=== PATIENT | female | born 1955 | race Caucasian/White ===

== ENCOUNTER → 2016-06-18 | Outpatient (CLI) | payer BC ==
[~2016-06-18] MED LIST: ACET325T96 PO; AMIO200T4 PO; APIX1TAB3 PO; CALC500C70 PO; CLIN300C2 PO; COEN100C6 PO; FURO20TA PO; GENTAMICIN NAE; HYDR-5688 PO; IBAN150T PO; METO25TA3 PO; MULT-506 PO; NASONEX NAE; OMEG10007 PO; POTA10CA28 PO; PRAV20TA PO; SODIUM CHLORIDE NAE; quinapril PO
--- NOTE | 2016-06-18 12:38 | DIAGNOSTIC IMAGING REPORT ---
CT HEAD WITHOUT CONTRAST (CT) CLINICAL HISTORY: Severe headache COMPARISON STUDY: 03/09/2014 TECHNIQUE: Axial CT of the brain is performed from the vertex to the skull base. IV contrast was not administered for this examination. CT DOSE: 687.98 mGy.cm FINDINGS: No intra or extra-axial mass lesions are visualized. There is no CT evidence of acute cortical infarction. There is no evidence of midline shift. There is no acute hemorrhage. No calvarial fractures are visualized. There are minimal white matter hypodensities likely on a small vessel basis. There is no evidence of pathologic ventricular dilatation. There is no acute sinusitis. There are postsurgical changes present within the maxillary and ethmoid sinuses. IMPRESSION: No acute intracranial findings Electronically signed by: Stuart Garduno M.D. 06/18/2016 12:36 PM Dictated Date/Time: 06/18/2016 12:34 PM
== END | disposition home or self-care (01) ==
LOC: C.CTS 12:18
PROVIDERS: ATTEND Family Medicine
DX: R51 Headache (principal)

== ENCOUNTER → 2016-07-23 | Outpatient (CLI) | payer BC ==
[~2016-07-23] MED LIST changes: +GADAVIST IV PRN
--- NOTE | 2016-07-23 09:41 | DIAGNOSTIC IMAGING REPORT ---
MRI OF THE BRAIN WITHOUT AND WITH IV CONTRAST CLINICAL HISTORY: G44.84 Exertional [id number] New onset of headaches after age COMPARISON STUDY: No previous studies for comparison. TECHNIQUE: Utilizing a 1.5 Aiyana magnet and dedicated coil, multiplanar, multiecho imaging of the brain was performed pre and postcontrast administration. IV administration of 12.5 mL of Gadavist contrast was uneventful. FINDINGS: Diffusion-weighted images are negative for an acute ischemic focus. Several very small punctate foci of increased signal within the periventricular deep white matter regions. This is consistent with age and chronic small vessel change. No evidence for abnormal postcontrast enhancement. Ventricular system is midline. IMPRESSION: Negative study for age. Minimal chronic small vessel change. Electronically signed by: Ish David M.D. 07/23/2016 9:40 AM Dictated Date/Time: 07/23/2016 9:34 AM
--- NOTE | 2016-07-23 09:55 | DIAGNOSTIC IMAGING REPORT ---
NECK MRA HISTORY: Exertional [id number] New onset of headaches after age TECHNIQUE: [id number] and gadolinium-enhanced MRA of the neck was performed both before and after the intravenous administration of contrast. All measurements were calculated based on NASCET criteria. COMPARISON STUDY: Neck MRA 03/18/2012. FINDINGS: The aortic arch and proximal great vessels are widely patent. There is no significant stenosis, occlusion, or dissection identified within the bilateral common carotid, internal carotid, or vertebral arteries. Stable focal defect within the proximal to mid basilar artery. IMPRESSION: No significant stenosis, occlusion, or dissection identified within the carotid or vertebral arteries. Stable focal defect within the proximal to mid basilar artery which favors focal plaque. This results in moderate stenosis. Electronically signed by: Speedy Esteves M.D. 07/23/2016 9:54 AM Dictated Date/Time: 07/23/2016 9:46 AM
== END | disposition home or self-care (01) ==
LOC: C.MRIBC 08:04
PROVIDERS: ATTEND Psychiatry & Neurology Neurology
DX: G44.84 Primary exertional headache (principal); R51 Headache

== ENCOUNTER → 2016-08-17 | Outpatient (CLI) | payer BC ==
[~2016-08-17] MED LIST changes: -GADAVIST IV PRN
--- NOTE | 2016-08-17 14:29 | DIAGNOSTIC IMAGING REPORT ---
ABDOMINAL ULTRASOUND COMPLETE HISTORY: Generalized abdominal pain.. COMPARISON: None. FINDINGS: Pancreas: The visualized portions of the pancreas are unremarkable. Liver: There is a 1.4 cm cyst within the left hepatic lobe. Gallbladder: No gallbladder wall thickening. Multiple small gallstones. CBD: 9 mm. Kidneys: No hydronephrosis. Spleen: Normal in size. Aorta: Normal in caliber. IVC: Patent. IMPRESSION: 1. Multiple small gallstones. No gallbladder wall thickening. 2. The a dilated common bile duct measuring 9 mm. Electronically signed by: Speedy Esteves M.D. 08/17/2016 2:27 PM Dictated Date/Time: 08/17/2016 2:25 PM
== END | disposition home or self-care (01) ==
LOC: C.ULTRBC 13:40
PROVIDERS: ATTEND Family Medicine
DX: R10.9 Unspecified abdominal pain (principal)

== ENCOUNTER → 2016-08-18 | Outpatient (CLI) | payer BC ==
--- NOTE | 2016-08-18 09:57 | DIAGNOSTIC IMAGING REPORT ---
CHEST 2 VIEWS ROUTINE CLINICAL HISTORY: AB PAIN pain COMPARISON STUDY: 03/27/2016 FINDINGS: Chronic basilar fibrotic change. Mid and upper lungs are considered clear. Diaphragms smooth. Degenerative changes thoracic spine. IMPRESSION: Chronic change. No acute process. Electronically signed by: Ish David M.D. 08/18/2016 9:55 AM Dictated Date/Time: 08/18/2016 9:55 AM
== END | disposition home or self-care (01) ==
LOC: C.RAD1850 09:33
PROVIDERS: ATTEND Family Medicine
DX: R10.9 Unspecified abdominal pain (principal)

== ENCOUNTER 2016-09-24 10:55 | Day surgery (SDC) | payer BC ==
[2016-09-08 08:15] VITALS: BMI 31.0
--- NOTE | 2016-09-08 08:58 | PAT Medication Instructions ---
Service Date Sep 08, 2016. Current Home Medication List Acetaminophen Tab (Tylenol), 650 MG PO for Pain Apixaban (Eliquis), 5 MG PO BID Calcium/Vitamin D (Os-Demario 500 Plus D), 1 TAB PO QAM Coenzyme Q10 (Ubidecarenone) (Co-Enzyme Q10), 1 CAP PO QAM Fish Oil (Collins-3), 2 CAP PO QAM Furosemide (Lasix), 20 MG PO QAM Ibandronate Sodium (Boniva), 150 MG PO MONTHLY Metoprolol Succ (Toprol Xl) (Toprol-Xl), 25 MG PO HS Metoprolol Succinate (Toprol Xl), 12.5 MG PO QAM Multivitamin (Multivitamin), 1 TAB PO QAM Pravastatin (Pravachol ), 20 MG PO HS [Gentamicin/Nss], 1 DOSE LAURA UD PRN for PRN [Nasonex], 2 SPRAY LAURA DAILY PRN for PRN [quinapril], 5 MG PO QAM Medication Instructions For Your Scheduled Surgery Ibandronate Sodium (Boniva), 150 MG PO MONTHLY (continue as usual) Gentamicin/Nss 1 DOSE LAURA UD PRN for PRN (not taking currently) - Hold the following medications 2 weeks prior to surgery: Coenzyme Q10 (Ubidecarenone) (Co-Enzyme Q10), 1 CAP PO QAM Fish Oil (Collins-3), 2 CAP PO QAM - Hold the following medications 48 hours prior to surgery per cardio instructions: Apixaban (Eliquis), 5 MG PO BID - Hold the following medications the morning of surgery: Quinapril 5 MG PO QAM Multivitamin (Multivitamin), 1 TAB PO QAM Furosemide (Lasix), 20 MG PO QAM Calcium/Vitamin D (Os-Demario 500 Plus D), 1 TAB PO QAM - Take the following medications the morning of surgery with a sip of water: Nasonex 2 SPRAY LAURA DAILY PRN for PRN Metoprolol Succinate (Toprol Xl), 12.5 MG PO QAM Acetaminophen Tab (Tylenol), 650 MG PO for Pain (if needed) - Take the following medications as scheduled the night before surgery: Pravastatin (Pravachol ), 20 MG PO HS Metoprolol Succ (Toprol Xl) (Toprol-Xl), 25 MG PO HS Acetaminophen Tab (Tylenol), 650 MG PO for Pain : If you have any questions please call us at [phone] or [phone] ( [place]) or [phone]
[2016-09-08 09:56] LABS: PROTHROMBIN TIME (PATIENT) 10.5 SECONDS (9.0-12.0)
[2016-09-08 11:06] LABS: BUN/CREATININE RATIO 21.9 (10-20); CALCIUM 9.1 mg/dl (8.5-10.1); CREATININE 0.76 mg/dl (0.60-1.20); POTASSIUM 3.8 mmol/L (3.5-5.1)
[~2016-09-24] VITALS: Ht 160 cm; Wt 81.0 kg
[~2016-09-24 10:55] MED LIST changes: +ACETAMINOPHEN 1000 MG/100 ML IV IV ONE; -AMIO200T4 PO; +ATROPINE SULFATE 0.1 MG/ML 5ML SYR IV PRN; +CEFAZOLIN 2000 MG/60 ML D5W IV SCH; +CIPROFLOXACIN / D5W 400 MG IV SCH; -CLIN300C2 PO; +DEXAMETHASONE SOD INJ 4 MG/ML VIAL ONE; +EpHEDrine SULFATE INJ 50 MG/ML AMP IV PRN; +FENTANYL CITRATE INJ 50 MCG/1 ML 2 ML VIAL ONE; +GLYCOPYRROLATE INJ 0.2 MG/ML VIAL ONE; -HYDR-5688 PO; +HYDROmorphone INJ 1 MG/ML SYR IV PRN; +LABETALOL HCL IV 5 MG/ML 20ML IV PRN; +LACTATED RINGER'S 1000ML 1,000 ML IV SCH; +LIDOCAINE HCL 2% 2 ML VIAL (20MG/ML) ONE; +MEPERIDINE HCL 25 MG/ML CARP IV PRN; +MIDAZOLAM HCL 1 MG/ML 2ML VIAL ONE; +NEOSTIGMINE METHYLSULFATE 5 MG/5 ML SYR ONE; +ONDANSETRON INJ 2 MG/ML 2 ML VIAL IV PRN; +ONDANSETRON INJ 2 MG/ML 2 ML VIAL ONE; -POTA10CA28 PO; +PROPOFOL IV EMULSION 10 MG/ML 20 ML VIAL IV ONE; +ROCURONIUM BROMIDE 10 MG/ML 5 ML VIAL ONE; +[UNRECOGNIZED DRUG - REMARK] SCH
[2016-09-24 11:55] VITALS: BP 125/63; PULSE 70; TEMP 36.6; O2SAT 98; Ht 160 cm; Wt 81.0 kg
--- NOTE | 2016-09-24 12:29 | History & Physical Bridge Note ---
H&P Re-Evaluation Bridge Note: I have examined the patient, reviewed the History & Physical and in the interval since the performance of the History & Physical I have noted the following changes of clinical significance: No changes noted
[2016-09-24] MEDS ORDERED: BUPIVACAINE/EPINEPHRINE 0.5% MPF 1:200,000 30 ML VIAL ONE (12:34)
[2016-09-24] MEDS ORDERED: LACTATED RINGER'S 1000ML 1,000 ML IV PRN (12:57)
[2016-09-24] MEDS ORDERED: FENTANYL CITRATE INJ 50 MCG/1 ML 2 ML VIAL IV PRN (13:00)
[2016-09-24] MEDS ORDERED: ONDANSETRON INJ 2 MG/ML 2 ML VIAL IV PRN ×2 (13:00→14:15)
[2016-09-24] MEDS ORDERED: HYDR-5688 PO (13:05)
--- NOTE | 2016-09-24 13:08 | Discharge Instructions ---
Discharge Instructions Date of Service Sep 24, 2016. Visit Reason for Visit: Cholelithiasis Discharge Discharge Diagnosis / Problem: laparoscopic cholecystectomy Discharge Goals Goal(s): Decrease discomfort Activity Recommendations Activity Limitations: as noted below Lifting Limitations: no more than 10 pounds Shower/Bathe: no limitations (ok to shower) Driving or Machine Use: resume 3 days after discharge (if not taking [place]) Anesthesia . Post Anesthesia Instructions: If you have had General Anesthesia or IV Sedation: * Do not drive today. * Resume driving when surgeon permits. * Do not make important decisions or sign legal documents today. * Call surgeon for: 1. Temperature elevations greater than 101 degrees F. 2. Uncontrollable pain. 3. Excessive bleeding. 4. Persistent nausea and vomiting. 5. Medication intolerance (nausea, vomiting or rash). * For nausea and vomiting use only clear liquids such as: tea, soda, bouillon until nausea subsides, then gradually increase diet as tolerated. * If you have any concerns or questions, call your surgeon's office. If physician is unavailable and it is an emergency, call 911 or go to the nearest emergency room. . Instructions / Follow-Up Instructions / Follow-Up Dr. Storey in 2 weeks, call [phone] for any questions or if you do not already have an appt Restart Eliquis on Wednesday night Diet Recommendations Recommended Home Diet: no limitations Pending Studies Studies pending at discharge: no Medical Emergencies . Who to Call and When: Medical Emergencies: If at any time you feel your situation is an emergency, please call 911 immediately. . Non-Emergent Contact Non-Emergency issues call your: Surgeon Call Non-Emergent contact if: you have a fever, temperature is above 101.5, your pain is not controlled, wound has increased redness . . "Provider Documentation" section prepared by Altaf Serna. .
[2016-09-24] MEDS ORDERED: EpHEDrine SULFATE 50MG/5ML SYR ONE (13:22)
[2016-09-24] MEDS ORDERED: LACTATED RINGER'S 1000ML 1,000 ML IV SCH (14:02)
--- NOTE | 2016-09-24 14:06 | [facility] Operative Report ---
Operative Report Operative Date Sep 24, 2016. Pre-Operative Diagnosis Gallstones Post-Operative Diagnosis same Procedure(s) Performed lap zhao Surgeon Dr. Zachary Storey Salon Designer Surgeon(s) Jessica Griffin PA-C, Altaf Serna PA-C Estimated Blood Loss 10ML Findings non-inflammed gallbladder with stones. Specimens A: Gallbladder Anesthesia get Complication(s) None Disposition Recovery Room / PACU I attest to the content of the Intraoperative Record and any orders documented therein. Any exceptions are noted below.
[2016-09-24] MEDS: FENTANYL CITRATE INJ 50 MCG/1 ML 2 ML VIAL IV PRN ×2 (14:12→14:24)
[2016-09-24] MEDS ORDERED: HYDROCODONE/ACETAMOPHEN 5/325MG TAB PO PRN (14:15)
[2016-09-24] MEDS ORDERED: MoRPHine SULFATE 2 MG/ML CARP IV PRN (14:15)
--- NOTE | 2016-09-24 14:42 | OPERATIVE REPORT ---
DATE OF OPERATION: 09/24/2016 PREOPERATIVE DIAGNOSIS: Symptomatic cholelithiasis. POSTOPERATIVE DIAGNOSIS: Same. PROCEDURE: Laparoscopic cholecystectomy. SURGEON: Dr. Zachary Storey. SMOKE ROOM OPERATOR: Jessica Griffin PA-C and Altaf Serna PA-C ESTIMATED BLOOD LOSS: Approximately 10 mL. COMPLICATIONS: No immediate. ANESTHESIA: General. The patient tolerated the procedure well. OPERATIVE NOTE: After informed consent was obtained, the patient was taken to the operating suite and placed in the supine position. After successful intubation, the abdomen was sterilely prepped and draped in the usual fashion. A periumbilical incision made with an 11 blade scalpel and carried down through the soft tissue using electrocautery. Anterior rectus fascia was opened using electrocautery and two #0 Vicryl stay sutures were placed. Peritoneum was entered using blunt finger penetration and a finger sweep was performed to take down any underlying adhesions. A 12-mm Marilyn trocar was placed and the abdomen was insufflated to 18 mmHg. Laparoscope was inserted and the abdomen was examined at 360 degrees. A subxiphoid 5-mm port and 2 right upper quadrant 5-mm ports were placed under direct vision. The patient was placed in reverse Trendelenburg position slightly airplaned to the left. The patient had a very large floppy gallbladder and she also a very large floppy left lobe of the liver, making visualization difficult. ____ 5-mm trocar in the left upper quadrant to help elevate the left lobe of the liver, so I could visualize the cystic duct adequately. I took down adhesions around the neck of the gallbladder using a [place] dissector. Eventually, I was able to skeletonize the cystic duct, clipped it twice proximally and once distally and transected with a scissor. In similar fashion, the cystic artery was identified, skeletonized, clipped and divided. Electrocautery was used to remove the gallbladder from the gallbladder fossa. It was removed intact and placed into an EndoCatch bag and removed from the camera port site. Several small bleeding points in the gallbladder fossa were controlled using electrocautery. Thorough irrigation was performed. At the end of the procedure, there was adequate hemostasis and no evidence of a bile leak. No other gross abnormalities were identified. All the trocars were removed and the abdomen was desufflated. The fascia of the camera port was closed using 0 Vicryl in a [id number] fashion. All the wounds were irrigated and closed using 4-0 Monocryl. Marcaine was injected around them for postoperative analgesia and skin glue used as a dressing. The patient was awakened, extubated, and transferred to recovery in stable condition. I attest to the content of the Intraoperative Record and any orders documented therein. Any exceptio ns are noted below.
--- NOTE | 2016-09-24 14:42 | Anesthesiology Progress Note ---
Anesthesia Post Op Note Date & Time Sep 24, 2016 at 14:42 Vital Signs Pain Intensity: 3 Vital Signs Past 12 Hours Date Time Temp Pulse Resp B/P Pulse Ox O2 Delivery O2 Flow Rate FiO2 09/24/16 14:34 66 15 09/24/16 14:34 66 15 98 09/24/16 14:34 66 15 09/24/16 14:34 66 15 98 09/24/16 14:31 122/61 09/24/16 14:31 122/61 09/24/16 14:29 65 22 09/24/16 14:29 65 22 09/24/16 14:29 66 22 97 09/24/16 14:29 66 22 97 09/24/16 14:26 121/67 09/24/16 14:26 121/67 09/24/16 14:24 64 20 98 09/24/16 14:24 64 20 98 09/24/16 14:24 64 20 09/24/16 14:24 64 20 09/24/16 14:21 115/60 09/24/16 14:21 115/60 09/24/16 14:19 64 19 98 09/24/16 14:19 64 19 09/24/16 14:19 64 19 09/24/16 14:19 64 19 98 09/24/16 14:16 123/68 09/24/16 14:16 123/68 09/24/16 14:14 65 14 09/24/16 14:14 65 14 09/24/16 14:14 65 14 98 09/24/16 14:14 65 14 98 09/24/16 14:11 133/72 09/24/16 14:11 133/72 09/24/16 14:09 65 16 09/24/16 14:09 63 16 98 09/24/16 14:09 63 16 98 09/24/16 14:09 65 16 09/24/16 14:05 125/75 09/24/16 14:05 125/75 09/24/16 14:04 70 09/24/16 14:04 70 97 09/24/16 14:04 70 97 09/24/16 14:04 70 09/24/16 14:04 36.0 66 10 125/75 98 Mask 10 09/24/16 11:55 36.6 70 18 125/63 98 Room Air Notes Mental Status: alert / awake / arousable, participated in evaluation Pt Amnestic to Procedure: Yes Nausea / Vomiting: adequately controlled Pain: adequately controlled Airway Patency, RR, SpO2: stable & adequate BP & HR: stable & adequate Hydration State: stable & adequate Anesthetic Complications: no major complications apparent Pt doing well.
[2016-09-24 14:55] VITALS: BP 131/59; PULSE 71; TEMP 36.5; O2SAT 95
[2016-09-24 15:25] VITALS: BP 118/62; PULSE 74; TEMP 36.5; O2SAT 96
[2016-09-24 15:55] VITALS: BP 116/64; PULSE 71; TEMP 36.7; O2SAT 96
== END 2016-09-24 16:00 | disposition home or self-care (01) ==
LOC: C.ACU 10:55
PROVIDERS: ATTEND Surgery
DX: K80.10 Calculus of gallbladder with chronic cholecystitis without obstruction (principal); I10 Essential (primary) hypertension; I50.9 Heart failure, unspecified; I48.91 Unspecified atrial fibrillation; Z85.828 Personal history of other malignant neoplasm of skin; E78.00 Pure hypercholesterolemia, unspecified; Z95.2 Presence of prosthetic heart valve; Z90.89 Acquired absence of other organs; Z98.890 Other specified postprocedural states; Z88.0 Allergy status to penicillin; Z86.73 Personal history of transient ischemic attack (TIA), and cerebral infarction without residual deficits; Z79.01 Long term (current) use of anticoagulants; Z68.31 Body mass index [BMI] 31.0-31.9, adult; E66.9 Obesity, unspecified; Z83.3 Family history of diabetes mellitus; Z82.49 Family history of ischemic heart disease and other diseases of the circulatory system

== ENCOUNTER → 2016-11-02 | Outpatient (CLI) | payer BC ==
[~2016-11-02] MED LIST changes: -ACET325T96 PO; -ACETAMINOPHEN 1000 MG/100 ML IV IV ONE; -APIX1TAB3 PO; -ATROPINE SULFATE 0.1 MG/ML 5ML SYR IV PRN; -CEFAZOLIN 2000 MG/60 ML D5W IV SCH; -CIPROFLOXACIN / D5W 400 MG IV SCH; -DEXAMETHASONE SOD INJ 4 MG/ML VIAL ONE; -EpHEDrine SULFATE INJ 50 MG/ML AMP IV PRN; -FENTANYL CITRATE INJ 50 MCG/1 ML 2 ML VIAL ONE; -GLYCOPYRROLATE INJ 0.2 MG/ML VIAL ONE; +HYDR-5688 PO; -HYDROmorphone INJ 1 MG/ML SYR IV PRN; -LABETALOL HCL IV 5 MG/ML 20ML IV PRN; -LACTATED RINGER'S 1000ML 1,000 ML IV SCH; -LIDOCAINE HCL 2% 2 ML VIAL (20MG/ML) ONE; -MEPERIDINE HCL 25 MG/ML CARP IV PRN; -MIDAZOLAM HCL 1 MG/ML 2ML VIAL ONE; -NEOSTIGMINE METHYLSULFATE 5 MG/5 ML SYR ONE; -ONDANSETRON INJ 2 MG/ML 2 ML VIAL IV PRN; -ONDANSETRON INJ 2 MG/ML 2 ML VIAL ONE; -PROPOFOL IV EMULSION 10 MG/ML 20 ML VIAL IV ONE; -ROCURONIUM BROMIDE 10 MG/ML 5 ML VIAL ONE; -[UNRECOGNIZED DRUG - REMARK] SCH
--- NOTE | 2016-11-02 17:33 | DIAGNOSTIC IMAGING REPORT ---
LUMBAR SPINE 5 VIEWS HISTORY: Pain LOW BACK PAIN COMPARISON: None. FINDINGS: There is no fracture. No subluxation. Mild degenerative disc change. No evidence for subluxation. Mild scoliosis. IMPRESSION: Mild degenerative disc change. Mild scoliosis. No acute process. Electronically signed by: Ish David M.D. 11/02/2016 5:31 PM Dictated Date/Time: 11/02/2016 5:31 PM
== END | disposition home or self-care (01) ==
LOC: C.RAD 17:07
PROVIDERS: ATTEND Nurse Practitioner Family
DX: M54.5 Low back pain (principal)

== ENCOUNTER → 2017-02-11 | Outpatient (CLI) | payer BC ==
--- NOTE | 2017-02-11 16:21 | MAMMOGRAPHY REPORT ---
BILATERAL DIGITAL SCREENING MAMMOGRAM WITH CAD: 02/11/2017 CLINICAL HISTORY: Routine screening. Patient has no complaints. TECHNIQUE: Current study was also evaluated with a Computer Aided Detection (CAD) system. Bilateral CC and MLO views were obtained. COMPARISON: Comparison is made to exams dated: 02/11/2016 mammogram, 01/31/2015 mammogram, 03/30/2013 m ammogram, 09/22/2011 mammogram - [facility], 03/02/2007 mammogram, and 03/02/2007 mamm ogram. BREAST COMPOSITION: There are scattered areas of fibroglandular density in both breasts. FINDINGS: No suspicious masses, calcifications, or areas of architectural distortion are noted in ei ther breast. There has been no significant interval change compared to prior exams. IMPRESSION: ACR BI-RADS CATEGORY 1: NEGATIVE There is no mammographic evidence of malignancy. A 1 year screening mammogram is recommended. The pa tient will receive written notification of the results. Approximately 10% of breast cancers are not detected with mammography. A negative mammographic report should not delay biopsy if a clinically suggestive mass is present. Chen Crawford M.D. /:02/11/2017 14:52:21 Powerhouse Laborer: Josiane Bocanegra, [facility] letter sent: Normal 1/2 BI-RADS Code: ACR BI-RADS Category 1: Negative
== END | disposition home or self-care (01) ==
LOC: C.MAMM 14:35
PROVIDERS: ATTEND Family Medicine
DX: Z12.31 Encounter for screening mammogram for malignant neoplasm of breast (principal)

== ENCOUNTER → 2017-04-26 | Outpatient (CLI) | payer BC ==
[~2017-04-26] MED LIST changes: -HYDR-5688 PO
--- NOTE | 2017-04-26 09:04 | DIAGNOSTIC IMAGING REPORT ---
ABDOMEN COMPLETE (US) CLINICAL HISTORY: 61 years-old Female with GAS AND BLOATING. Acute generalized abdominal pain and bloating. COMPARISON: Ultrasound of the abdomen 08/17/2016 TECHNIQUE: Multiple real time sonographic images of the abdomen were obtained assessing gee-scale appearance. FINDINGS: PANCREAS: The pancreas is partially obscured by bowel gas. The visualized portions of the pancreas are normal without focal lesion or pancreatic duct dilatation. LIVER: The liver demonstrates a homogeneous parenchymal echotexture. There is no intrahepatic bile duct dilation, or contour nodularity. There is no ascites. GALLBLADDER: The gallbladder is surgically absent. Negative sonographic Will's sign. The common bile duct measures 1 cm, Previously 9 mm. Low attenuating thin-walled lesion of the left hepatic lobe is again seen measuring up to 1.2 cm, unchanged from comparison. RIGHT KIDNEY: The right kidney measures 10.0 x 3.7 x 4.5 cm. The parenchymal echotexture and cortical thickness are normal. No nephrolithiasis or hydronephrosis. LEFT KIDNEY: The left kidney measures 10.8 x 5.8 x 5.5 cm. The parenchymal echotexture and cortical thickness are normal. No nephrolithiasis or hydronephrosis. SPLEEN: The spleen measures 9.9 cm and is normal in echotexture. No focal lesions are identified. VASCULATURE: The visualized aorta and inferior vena cava are sub-visualized although appear normal as seen. IMPRESSION: 1. Prior cholecystectomy. Mild dilation of the common bile duct is again seen, likely physiologic from postsurgical state. 2. The remainder of the study is within normal limits as above. The above report was generated using voice recognition software. It may contain grammatical, syntax or spelling errors. Electronically signed by: Arsalan De Oliveira M.D. 04/26/2017 9:03 AM Dictated Date/Time: 04/26/2017 8:58 AM
== END | disposition home or self-care (01) ==
LOC: C.ULTR 08:14
PROVIDERS: ATTEND Family Medicine
DX: R14.0 Abdominal distension (gaseous) (principal)

== ENCOUNTER → 2017-05-06 | Outpatient (CLI) | payer BC | END | disposition home or self-care (01) | LOC: C.FOODA 13:12 | PROVIDERS: ATTEND Family Medicine | DX: E66.9 Obesity, unspecified (principal) ==

== ENCOUNTER 2018-06-08 05:15 | Inpatient (IN) ==
--- NOTE | 2018-05-20 14:17 | Anesthesiology Consultation ---
Date of Service May 20, 2018 Assessment & Plan (1) Encounter for pre-operative examination: Plan: PCP clearance 05/10/2018: Good cardiac capacity with METS at least 4, for an intermediate procedure. With history of CHF and CVA, she is at an elevated risk for the procedure but conditions are as stable as it can be. Cardiac clearance 05/11/2018: "I believe her risk of cardiac comp occasions is in the range of 4-5%. I think her greatest risk is that of recurrent arrhythmias, including atrial arrhythmias and PVCs, as well as her greatest risk is likely that of heart failure. I be very judicious with her fluids in the perioperative period, reducing the amount of fluid she receives in the operating room as soon as she can take p.o. after the surgery her fluid should be discontinued. She may need some additional doses of diuretics in the perioperative period. I did recommend an echocardiogram as the last was the fall 2005 just to make sure her LV function remains normal.* She is known to have a mild to moderate nonischemic cardiomyopathy. With regards to her anticoagulation her Eliquis can be stopped 2-3 days prior to the procedure and then restarted when the risk of bleeding is acceptable after the operation. Her stroke risk is extremely low as she is currently in sinus rhythm." *echo done 06/03 showed normalized LV systolic function. Chart Review Chart Review: Acceptable Risk for Surgery and Patient seen in Pre Admission Testing Teaching & Discussion Instructed NPO after midnight before surgery, except medications with 15 cc of water. Medication instructions provided according to the PAT guidelines. History Surgery Operation Date: 06/08/18 07:00 Proposed Procedures p Left Total Knee Arthroplasty - Jacoby Rajput MD Height/Weight Height: 5 ft 4 in Weight: 86.1 kg Allergies Allergy/AdvReac Type Severity Reaction Status Date / Time Penicillins Allergy Severe ANAPHYLAXIS Verified 05/13/18 09:21 clopidogrel Allergy Intermediate rash Verified 05/13/18 09:21 rifampin Allergy Intermediate rash Verified 05/13/18 09:21 clarithromycin AdvReac Intermediate nausea Verified 05/13/18 09:21 lisinopril AdvReac Intermediate cough Verified 05/13/18 09:21 hydrochlorothiazide AdvReac Mild headache Verified 05/13/18 09:21 Medications Home Medications Medication Instructions Recorded Confirmed Last Taken apixaban [Eliquis] 5 mg PO BID 05/13/18 05/13/18 Unknown calcium carbonate [Calcium 600] 1 dose PO DAILY 05/13/18 05/13/18 Unknown coenzyme Q10 [CoQ-10] 200 mg PO DAILY 05/13/18 05/13/18 Unknown furosemide 20 mg PO QAM 05/13/18 05/13/18 Unknown metoprolol succinate 12.5 mg PO QAM 05/13/18 05/13/18 Unknown metoprolol succinate 25 mg PO HS 05/13/18 05/13/18 Unknown multivitamin [Multiple Vitamins] 1 tab PO DAILY 05/13/18 05/13/18 Unknown potassium chloride 20 meq PO QAM 05/13/18 05/13/18 Unknown pravastatin 20 mg PO HS 05/13/18 05/13/18 Unknown quinapril 5 mg PO QAM 05/13/18 05/13/18 Unknown Past Medical History Medical History Atrial flutter WITH POSSIBLE A-FIB. S/P ABLATION 2015. DURING PROCEDURE HAD ACUTE CHF, AND HAD TO BE CARDIOVERTED. STILL ON ELIQUIS. Arthritis History of TIA (transient ischemic attack) 5 YRS AGO, WAS ON PLAVIX (HAD ALLERGIC RXN), THEN AGRENOX FOR TX. NOW ON ELIQUIS. NO RESIDUAL EFFECTS History of heart failure FOLLOWING CARDIAC ABLATION/TOO MUCH FLUID DURING ABLATION PROCEDURE History of skin cancer History of tachycardia CARDIOVERSION 2015 Hyperlipidemia Hypertension Mitral valve disease RHEUMATIC. S/P REPLACEMENT 2009 Osteopenia FOSOMAX TO START AFTER SURGERY Thyroid nodule Past Surgical History Surgical History History of cardiac catheterization 2009/PRIOR TO VALVE REPLACEMENT/[facility]IE [facility]RIAZA History of cardiac radiofrequency ablation History of colonoscopy History of laparoscopic cholecystectomy History of mitral valve replacement 2009-[facility]/DR PALMER Past Anesthesia History No Hx of Anesthesia Complications and No Family Hx of Anesthesia Complications History of PONV No Motion Sickness Screening History of Motion Sickness: No Social History Smoking Status: Never smoker Do You Dip or Chew Tobacco: No Hx Alcohol Use: Yes Alcohol type: wine alcohol intake frequency: a few times a month Hx Substance Use: No substance use type: does not use Exercise / Class Metabolic Activity II 4-5 Yardwork/Stairs/Walk up hill (NO CP OR SOB WITH STAIRS) Review of Systems Pt denies any recent chest pain, shortness of breath, palpitations, cough, fever or URI. Physical Exam Vital Signs BP: 11/68 P: 75bpm SPO2: 95% RA T: 98.2 F R: 14 ENMT Mouth: + dental bridge (upper left) and + dental restorations (few crowns on molars); no chipped teeth and no loose teeth Thyromental Distance: > or= 3.5 Finger Breadths (3.5) Mallampati Class: III Neck normal visual inspection; neck extension not limited Respiratory normal respiratory effort Auscultation: lungs clear to auscultation bilaterally Cardiovascular Rate/Rhythm: regular rate and regular rhythm Heart Sounds: no murmur Vessels: no carotid bruit Extremities: no edema Testing Electrocardiogram Date: 05/11/18 Findings: + NSR @ (77) 1st degree AV block. Echocardiogram Date: 06/03/18 EF: 60% Normal LV size and systolic function with no regional wall motion abnormalities. Mild to moderate concentric LVH. Top normal RV size with mildly reduced RV systolic function. Bioprosthetic mitral valve replacement with increased gradients (previous MG 5.4 and now 7.9 mmHg). No significant MR. Normal PA pressures. Since prior study of 03/17/2016 the LV function has normalized. EMG across the bio MVR is slightly higher. Laboratory Results 05/20/18 14:41 Blood Type O Negative 05/20/18 14:41 Antibody Screen NEGATIVE 05/20/18 14:41 PT 10.1 Seconds (9.0-12.0) 05/20/18 14:41 INR 1.0 (0.9-1.1) 05/20/18 14:41 Urine Color Yellow 05/20/18 14:41 Urine Appearance Clear (Clear) 05/20/18 14:41 Urine pH 6.0 (4.5-7.5) 05/20/18 14:41 Ur Specific [place] 1.019 (1.000-1.030) 05/20/18 14:41 Urine Protein Negative (Negative) 05/20/18 14:41 Urine Glucose (UA) Negative (Negative) 05/20/18 14:41 Urine Ketones Negative (Negative) 05/20/18 14:41 Urine Nitrite Negative (Negative) 05/20/18 14:41 Ur Leukocyte Esterase Negative (Negative) 05/20/18 14:41 05/20/18 14:41 Urine Culture - Final Urine,Clean Catch No growth - less than 1,000 colonies/mL. 05/10/18 SODIUM: 141 POTASSIUM: 4.1 CHLORIDE: 103 CO2: 29 BUN: 15 CREATININE: 0.60 GLUCOSE: 111
--- NOTE | 2018-05-20 14:28 | PAT Medication Instructions ---
Medication Instructions Date of Service May 20, 2018 Home Medications apixaban [Eliquis] 5 mg PO BID calcium carbonate [Calcium 600] 1 dose PO DAILY coenzyme Q10 [CoQ-10] 200 mg PO DAILY furosemide 20 mg PO QAM metoprolol succinate 12.5 mg PO QAM metoprolol succinate 25 mg PO HS multivitamin [Multiple Vitamins] 1 tab PO DAILY potassium chloride 20 meq PO QAM pravastatin 20 mg PO HS quinapril 5 mg PO QAM ASK your prescriber and surgeon apixaban [Eliquis] 5 mg PO BID Per cardiology and surgeon, OK to hold Eliquis for 3 days (72hrs) prior to surgery. STOP taking 2 weeks before surgery coenzyme Q10 [CoQ-10] 200 mg PO DAILY DO NOT take the morning of surgery calcium carbonate [Calcium 600] 1 dose PO DAILY furosemide 20 mg PO QAM multivitamin [Multiple Vitamins] 1 tab PO DAILY potassium chloride 20 meq PO QAM quinapril 5 mg PO QAM Take morning of surgery With a small sip of water, OTHERWISE NOTHING TO EAT OR DRINK AFTER MIDNIGHT: metoprolol succinate 12.5 mg PO QAM Take evening before surgery metoprolol succinate 25 mg PO HS pravastatin 20 mg PO HS Other Notes If you have any questions please call us at [phone] or [phone] or [phone] or [phone]
[2018-05-20 15:23] LABS: Basophils # (auto) 0.03 K/uL (0-0.2); Basophils % (auto) 0.5 %; Eosinophils # (auto) 0.04 K/uL (0-0.5); Eosinophils % (auto) 0.7 %; Hematocrit (blood only) 41.5 % (37-47); Immature Granulocytes # (auto) 0.01 K/uL (0.00-0.02); Immature Granulocytes % (auto) 0.2 %; Lymphocytes # (auto) 1.61 K/uL (1.2-3.4); Lymphocytes % (auto) 26.5 %; Mean Corpuscular Hgb Conc 33.7 g/dL (32-36); Mean Corpuscular Volume 92.6 fL (80-100); Mean Platelet Volume 10.8 fL (7.4-10.4); Monocytes # (auto) 0.49 K/uL (0.11-0.59); Monocytes % (auto) 8.1 %; Platelet Count 195 K/uL (130-400); RDW Coefficient of Variation 12.3 % (11.5-14.5); RDW Standard Deviation 41.5 fL (36.4-46.3); Red Blood Count 4.48 M/uL (4.2-5.4); White Blood Count 6.08 K/uL (4.8-10.8)
[2018-05-20 15:36] LABS: Prothrombin Time 10.1 Seconds (9.0-12.0)
[2018-05-20 15:38] LABS: Appearance Urine Clear (Clear); Bilirubin Urine Negative (Negative); Color Urine Yellow; Glucose Urine UA Negative (Negative); Ketones Urine Negative (Negative); Leukocyte Esterase Urine Negative (Negative); Nitrite Urine Negative (Negative); Protein Urine Negative (Negative); Specific Gravity Urine 1.019 (1.000-1.030); Urobilinogen Urine Negative (Negative)
--- NOTE | 2018-05-20 16:34 | History & Physical Report ---
Date of Service May 20, 2018 Assessment & Plan (1) Osteoarthritis of left knee: PLAN: Patient is scheduled to undergo this procedure with Dr. Jacoby Rajput at the [facility] as an inpatient on 06/08/2018. Risks and complications of the procedure such as infection, bleeding, pain, scarring, nerve and blood vessel damage, weakness, wound problems, stiffness, incomplete relief of symptoms, heart attack, stroke, , hardware failure, loosening, wear, fracture, blood clots and embolism were explained to the patient at her visit today by Dr. Rajput. Informed consent to perform the procedure was obtained. 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 Morse. We have also obtained a preoperative complete metabolic panel and an EKG. We will be awaiting results of CBC, PT, INR, urinalysis, urine culture, hemoglobin A1c and a nasal culture for MRSA after she receives the testing this afternoon. Due to her previous colonization of MRSA, we will treat her preoperatively with vancomycin along with clindamycin. The patient states she is also scheduled to have an echocardiogram done on June 03 and she will have the results sent to our office after the procedure is performed. Patient was given an order today to rent a walker for the postoperative phase of surgery. I advised her that we will give her a prescription for pain medicine and restart her Eliquis day 1 postoperatively. She will stop the Eliquis 3 days prior to the procedure. I advised her she can take her regular blood pressure medication with a sip of water the morning of surgery. I went over specifically what will proceed whenever we do her total joint replacement using a model to give her a visual aid. I educated her about the use of antibiotics after joint replacement surgery. She states she understands this and she has had to do so since her valve replacement. The patient was given the [employer] paperwork to use for 6 months postoperatively. She is planning on doing home physical therapy for 2 weeks and then transitioning to outpatient physical therapy after her 2-week followup visit. The patient verbalized understanding of all information provided during today's visit, thanked us for the care she has received and states if she has additional questions or concerns that should arise prior to the procedure date, she will contact the clinic accordingly. History of Present Illness Chief Complaint: Left knee pain Primary Care Provider: Hira Morse HISTORY OF PRESENT ILLNESS: This 62-year-old female presents to clinic today for preoperative history and physical. The patient complains of significant left knee pain with gait disturbance that has been ongoing since a trip to [place] this past November. She states she has had persistent knee pain for several years but states that the pain was exacerbated during that trip and since that time has had no relief with injections or physical therapy or the use of nonsteroidal or pain relieving agents. She states that pain in her knee is starting to affect her left hip due to her gait abnormality and is affecting her activities of daily life. PAST MEDICAL HISTORY: Acute heart failure, actinic keratosis, atrial flutter, atrial tachycardia, chronic cholecystitis, congestive heart failure, diverticulosis, exertional headache, gallstones, ganglion cyst, pericarditis, stroke, hypertension, low back pain, left ventricular dysfunction, migraine with aura, mitral valve prolapse, MRSA nasal colonization, osteopenia, premature ventricular contractions, squamous cell carcinoma, thyroid nodule, vertigo and obesity. PAST SURGICAL HISTORY: Colonoscopy, shave biopsy of skin, laparoscopic cholecystectomy, percutaneous transluminal ablation of the atrial wall for atrial flutter, mitral valve replacement, right ganglion cyst removal, left knee arthroscopy, section and sinus surgery x4. FAMILY HISTORY: Positive for bone cancer, dementia, diabetes, heart disease, high blood pressure, macular degeneration and stroke. ALLERGIES: PATIENT HAS MEDICATION ALLERGIES TO BIAXIN, HYDROCHLOROTHIAZIDE, LISINOPRIL, PENICILLIN, PLAVIX AND RIFAMPIN. HER PENICILLIN ALLERGY IS ANAPHYLACTIC. CURRENT MEDICATIONS: Apixaban 5 mg oral tablet 1 tab twice daily, calcium vitamin D combination 600 mg/400 international units daily, Cleocin, HCL 300 mg oral capsule 2 caps 1 hour prior to dental work, CoQ 100 mg tablet daily, Fosamax 35 mg oral tablet 1 tablet every 7 days for 84 days reconstituted with 6 to 8 ounces of plain water 30 minutes before first food or beverage of the day , K-Dur 20 mEq oral tablet extended release 1 tab daily, Lasix 20 mg oral tablet 1 tab daily, multivitamin unknown dosage daily, pravastatin 20 mg oral tablet 1 tab at bedtime, quinapril 5 mg oral tablet 1 tab daily, Toprol XL 25 mg oral extended release tablet 1 tab twice daily and Tylenol 650 mg oral tablet every 4 hours as needed for pain. SOCIAL HISTORY: The patient states she occasionally consumes a glass of wine on weekends with meals. She denies tobacco or illicit drug use. DIAGNOSIS: Left knee osteoarthritis. PROCEDURE: Left total knee arthroplasty. Allergies Allergy/AdvReac Type Severity Reaction Status Date / Time Penicillins Allergy Severe ANAPHYLAXIS Verified 05/13/18 09:21 clopidogrel Allergy Intermediate rash Verified 05/13/18 09:21 rifampin Allergy Intermediate rash Verified 05/13/18 09:21 clarithromycin AdvReac Intermediate nausea Verified 05/13/18 09:21 lisinopril AdvReac Intermediate cough Verified 05/13/18 09:21 hydrochlorothiazide AdvReac Mild headache Verified 05/13/18 09:21 Home Medications Home Medications Medication Instructions Recorded Confirmed Type apixaban [Eliquis] 5 mg PO BID 05/13/18 05/13/18 History calcium carbonate [Calcium 600] 1 dose PO DAILY 05/13/18 05/13/18 History coenzyme Q10 [CoQ-10] 200 mg PO DAILY 05/13/18 05/13/18 History furosemide 20 mg PO QAM 05/13/18 05/13/18 History metoprolol succinate 12.5 mg PO QAM 05/13/18 05/13/18 History metoprolol succinate 25 mg PO HS 05/13/18 05/13/18 History multivitamin [Multiple Vitamins] 1 tab PO DAILY 05/13/18 05/13/18 History potassium chloride 20 meq PO QAM 05/13/18 05/13/18 History pravastatin 20 mg PO HS 05/13/18 05/13/18 History quinapril 5 mg PO QAM 05/13/18 05/13/18 History Past Med/Surg History Medical History Atrial flutter WITH POSSIBLE A-FIB. S/P ABLATION 2015. DURING PROCEDURE HAD ACUTE CHF, AND HAD TO BE CARDIOVERTED. STILL ON ELIQUIS. Arthritis History of TIA (transient ischemic attack) 5 YRS AGO, WAS ON PLAVIX (HAD ALLERGIC RXN), THEN AGRENOX FOR TX. NOW ON ELIQUIS. NO RESIDUAL EFFECTS History of heart failure FOLLOWING CARDIAC ABLATION/TOO MUCH FLUID DURING ABLATION PROCEDURE History of skin cancer History of tachycardia CARDIOVERSION 2015 Hyperlipidemia Hypertension Mitral valve disease RHEUMATIC. S/P REPLACEMENT 2009 Osteopenia FOSOMAX TO START AFTER SURGERY Thyroid nodule Surgical History History of cardiac catheterization 2010/PRIOR TO VALVE REPLACEMENT/RICHIE ARRIAZA History of cardiac radiofrequency ablation History of colonoscopy History of laparoscopic cholecystectomy History of mitral valve replacement 2009-[facility]/DR PALMER Social History Current Living Situation: Spouse Other Information That Helps Us Care for You: No Feels Safe at Home: Yes Smoking Status: Never smoker Do You Dip or Chew Tobacco: No Hx Alcohol Use: Yes Alcohol type: wine Alcohol Intake Frequency: a few times a month Hx Substance Use: No Beliefs That Will Affect Care: None Preferred Language: Estonian Communication Ability: Effective Snowmaker Required: No Review of Systems All systems reviewed & are unremarkable except as noted in HPI & below Physical Exam 2 Vital Signs (Past 24 Hours): PHYSICAL EXAMINATION: Skin: The patient's skin is normal in appearance. No open skin lesions or discharge. Eyes: Pupils are equal and react to light and accommodating. Extraocular movements are intact. Throat: Posterior pharynx is clear with absence of edema, erythema or exudate. Cardiovascular exam: The patient has a grade 2/6 holosystolic murmur heard best over the left upper sternal border and apex. Otherwise there are no gallops appreciated. She has a regular rate and rhythm noted on auscultation. Lungs: Auscultation of lung sandhu reveals clear breath sounds throughout with no wheezing, rales or rhonchi. Abdomen is obese, nondistended, nontender with normoactive bowel sounds. Extremities: Left knee, patient is able to reach 4 degrees of extension, 115 degrees of flexion. There is audible crepitation with range of motion. There is medial and lateral joint line tenderness when the knee is palpated in flexed position. There is visible varus alignment noted in the left knee. Patient has no varus or valgus laxity, negative AP drawer sign, negative Reagan test. Her left calf is soft and supple, nontender to palpation. Her patella is nonmobile due to arthritic changes. She is neurovascularly intact in the left lower extremity. Neurological exam: Cranial nerves 2 through 12 are intact. No motor or sensory deficit. Psychological/general exam: Patient is alert and oriented x3 with proper grooming and hygiene. Results & Data Diagnostic Findings RADIOGRAPHIC IMAGING: X-ray images of the left knee showed tricompartmental end -stage degenerative joint disease with appreciable varus malalignment. Code Status & VTE Plan VTE Prophylaxis Plan VTE Prophylaxis will be ordered: Yes
[2018-06-08] MEDS: LR 500ML BOLUS, THEN 15ML/HR IV SCH ×3 (05:50→19:13)
[2018-06-08] MEDS ORDERED: CeleBREX 200 MG CAP PO SCH (06:00)
[2018-06-08] MEDS ORDERED: FAMOTIDINE 20 MG TAB PO SCH (06:00)
[2018-06-08] MEDS ORDERED: ACETAMINOPHEN 500 MG TAB PO SCH (06:00)
[2018-06-08] MEDS ORDERED: SCOPOLAMINE 1.5 MG TDSY TD SCH (06:00)
[2018-06-08] MEDS ORDERED: CLINDAMYCIN 600 MG/54 ML BAG IV SCH (06:00)
[2018-06-08] MEDS ORDERED: ROPIVACAINE 0.5% HCL/PF 150 MG, BUPIVACAINE 0.5% MPF 30 ML, EPINEPHrine 0.15 MG, Ketoro... INFIL SCH ×2 (06:00)
[2018-06-08] MEDS ORDERED: dexAMETHasone 4 MG TAB PO SCH (06:00)
[2018-06-08] MEDS ORDERED: TRANEXAMIC ACID 1,000 MG x 1 **For Topical Use TOP SCH (06:00)
[2018-06-08] MEDS ORDERED: LR 60ML/HR IV SCH (06:00)
[2018-06-08] MEDS ORDERED: METOCLOPRAMIDE HCL 10 MG TABLET PO SCH (06:00)
[2018-06-08] MEDS ORDERED: dexAMETHasone 4 MG TAB PO ONE (06:13)
[2018-06-08] MEDS ORDERED: FAMOTIDINE 20 MG TAB ONE (06:13)
[2018-06-08] MEDS ORDERED: TRAMADOL HCL 50 MG TABLET ONE (06:13)
[2018-06-08] MEDS ORDERED: CeleBREX 200 MG CAP ONE (06:13)
[2018-06-08] MEDS ORDERED: METOCLOPRAMIDE HCL 10 MG TABLET ONE (06:13)
[2018-06-08] MEDS ORDERED: SCOPOLAMINE 1.5 MG TDSY ONE (06:13)
[2018-06-08] MEDS ORDERED: ACETAMINOPHEN 500 MG TAB ONE (06:14)
[2018-06-08] MEDS ORDERED: CLINDAMYCIN 600 MG/54 ML D5W IV ONE (06:14)
[2018-06-08] MEDS ORDERED: BUPIVACAINE 0.5 % 5 MG/1 ML PF 10ML VIAL ONE (06:19)
[2018-06-08] MEDS ORDERED: ROPIVACAINE 0.5% 5 MG/ML 30 ML VIAL ONE (06:19)
[2018-06-08] MEDS ORDERED: POVIDONE-IODINE OP SOLN 30 ML BTL ONE (06:34)
[2018-06-08] MEDS ORDERED: fentaNYL citrate 100 MCG/2 ML VIAL ONE (06:37)
[2018-06-08] MEDS ORDERED: MIDAZOLAM HCL 1 MG/ML 2ML VIAL ONE (06:37)
[2018-06-08] MEDS ORDERED: ATROPINE SULFATE 0.1 MG/ML 10ML SYR IV PRN (06:45)
[2018-06-08] MEDS ORDERED: ePHEDrine sulfate 50 MG/ML AMP IV PRN (06:45)
[2018-06-08] MEDS ORDERED: HYDROmorphone INJ 2 MG/ML SYR/VIAL IV PRN (06:45)
--- NOTE | 2018-06-08 06:55 | History & Physical Bridge Note ---
Date of Service June 08, 2018 History & Physical Bridge Note I have examined the patient, reviewed the History & Physical and in the interval since the performance of the History & Physical I have noted the following changes of clinical significance: no changes noted
[2018-06-08] MEDS ORDERED: PHENYLEPHRINE 100MCG/ML 5ML SYR ONE (07:21)
[2018-06-08] MEDS ORDERED: PROPOFOL IV EMULSION 10 MG/ML 20 ML VIAL IV ONE (07:21)
[2018-06-08] MEDS ORDERED: ONDANSETRON INJ 2 MG/ML 2 ML VIAL ONE (07:21)
[2018-06-08] MEDS ORDERED: LIDOCAINE HCL 2% 2 ML VIAL/AMP(20MG/ML) INFIL ONE (07:21)
[2018-06-08] MEDS ORDERED: ePHEDrine sulfate 50 MG/ML SYR ONE (07:44)
[2018-06-08] MEDS ORDERED: PHENYLEPHRINE HCL 10 MG/ML VIAL ONE (08:46)
--- NOTE | 2018-06-08 09:00 | Post Operative Brief Note ---
Immediate Post Op Note v1 Date of Surgery June 08, 2018 Pre & Post Diagnosis Operation Date: 06/08/18 07:00 Pre-Op Diagnosis: Left Knee Osteoarthritis Post-Op Diagnosis: Left Knee Osteoarthritis Procedure Operation Date: 06/08/18 07:00 Actual Procedures p Left Total Knee Arthroplasty(Left) - Jacoby Rajput MD Surgeon Jacoby Rajput MD Litigation Claim Representative VERENICE Mendez Estimated Blood Loss 200 Findings Consistent with Post-Op Diagnosis Fluids 800 cc Anesthesia Type Spinal MAC Complications none Disposition Accompanied Patient To Recovery: No Disposition: Recovery Room
--- NOTE | 2018-06-08 09:28 | Operative Report ---
Post Operative Report Pre & Post Diagnosis Operation Date: 06/08/18 07:00 Pre-Op Diagnosis: Left Knee Osteoarthritis Post-Op Diagnosis: Left Knee Osteoarthritis Procedure Operation Date: 06/08/18 07:00 Actual Procedures p Left Total Knee Arthroplasty(Left) - Jacoby Rajput MD Surgeon Jacoby Rajput MD Lining Brusher VERENICE Mendez Estimated Blood Loss 200 Findings Consistent with Post-Op Diagnosis Specimens none Complications none Disposition Accompanied Patient To Recovery: Yes Disposition: Recovery Room Description of Procedure I was present during the entire case assisting with wound closure and dressing application. Please see Dr. Rajput procedure note for specifics of the case. I attest to the content of the Intraoperative Record and any orders documented therein. Any exceptions are noted below.
[2018-06-08] MEDS ORDERED: MAGNESIUM HYDROXIDE SUSP 30 ML UDC PO PRN (09:29)
[2018-06-08] MEDS ORDERED: BISACODYL 10 MG SUPP PR PRN (09:29)
[2018-06-08] MEDS ORDERED: ALUMINUM/MAGNESIUM SUSP 30 ML UDC PO PRN (09:29)
[2018-06-08] MEDS ORDERED: DiphenhydrAMINE HCL 50 MG/ML VIAL IV PRN (09:29)
[2018-06-08] MEDS ORDERED: MoRPHine SULFATE 4 MG/ML 1 ML CARP\\VIAL IV PRN (09:29)
[2018-06-08] MEDS ORDERED: ONDANSETRON INJ 2 MG/ML 2 ML VIAL IV PRN (09:29)
[2018-06-08] MEDS ORDERED: METOCLOPRAMIDE HCL INJ 5 MG/ML 2 ML VIAL IV PRN (09:29)
[2018-06-08] MEDS ORDERED: SODIUM CHLORIDE 0.9% 1000ML 1,000 ML IV SCH (09:30)
--- NOTE | 2018-06-08 10:00 | XRay Report ---
LEFT KNEE 2 VIEWS History: Left total knee arthroplasty. Degenerative arthritis. Postop. FINDINGS: The patient is status post a left total knee arthroplasty. The hardware is intact. No fract ure or dislocation. IMPRESSION: Left total knee arthroplasty. No evidence for hardware complication. Electronically signed by: Speedy Esteves M.D. 06/08/2018 9:59 AM
--- NOTE | 2018-06-08 10:31 | Anesthesiology Progress Note ---
Date of Service June 08, 2018 Anesthesia Post Procedure Vital Signs Vital Signs: Temp Pulse Pulse Resp BP Pulse Ox 06/08/18 10:25 36.1 C L 76 15 92/58 L 92 06/08/18 10:15 77 14 92/53 L 94 06/08/18 10:05 70 13 94/45 L 93 06/08/18 09:55 77 12 95/59 L 92 06/08/18 09:45 78 14 92/57 L 92 06/08/18 09:35 72 19 93/50 L 94 06/08/18 09:28 36.7 C 77 12 97/58 L 93 06/08/18 05:50 36.4 C L 73 18 108/60 96 Notes Mental Status: alert / awake / arousable Patient Amnestic to Procedure: Yes Nausea / Vomiting: adequately controlled Pain: adequately controlled Airway Patency, RR, SpO2: stable & adequate BP & HR: stable & adequate Hydration State: stable & adequate Anesthetic Complications: no major complications apparent and Pt Satisfied with anesthetic care
--- NOTE | 2018-06-08 11:19 | Internal Medicine Consult Note ---
Date of Consultation June 08, 2018 Assessment & Plan (1) Atrial flutter: remains on eliquis, metoprolol, history of chronic systolic heart failure maintained on lasix, she also has a bioprosthetic ophelia valve (2) Hypertension: metoprolol, lasix and quinapril, dose of eliz i will be postphoned to start 1/10 in the evening (3) Hyperlipidemia: preavchol is continued (4) DVT prophylaxis: eliquis scheduled to resume /10 in the am History of Present Illness Attending Physician: Jacoby Rajput MD OPERATION DATE/TIME 06/08/18 07:00 Left Total Knee Arthroplasty History of Present Illness Consultation medical management the patient a left total knee arthroplasty. Patient was in the room with her doing well. Patient has movement of her foot but no sensation as the spinal still in place. We reviewed the patient medications and instructed her of the change from quinapril to enalapril and the fact that we will postpone this dosing for another day, the fact we will start her Eliquis in the morning on 110, and the continuation of metoprolol and Lasix. The patient does have some lower blood pressure currently will make a decision tomorrow whether we will hold the Lasix based on her blood pressure and renal function Allergies Allergy/AdvReac Type Severity Reaction Status Date / Time Penicillins Allergy Severe ANAPHYLAXIS Verified 06/08/18 05:43 clopidogrel Allergy Intermediate rash Verified 06/08/18 05:43 rifampin Allergy Intermediate rash Verified 06/08/18 05:43 clarithromycin AdvReac Intermediate nausea Verified 06/08/18 05:43 lisinopril AdvReac Intermediate cough Verified 06/08/18 05:43 hydrochlorothiazide AdvReac Mild headache Verified 06/08/18 05:43 Home Medications Home Medications Medication Instructions Recorded Confirmed Type apixaban [Eliquis] 5 mg PO BID 05/13/18 06/08/18 History calcium carbonate [Calcium 600] 1 dose PO DAILY 05/13/18 06/08/18 History coenzyme Q10 [CoQ-10] 200 mg PO DAILY 05/13/18 06/08/18 History furosemide 20 mg PO QAM 05/13/18 06/08/18 History metoprolol succinate 12.5 mg PO QAM 05/13/18 06/08/18 History metoprolol succinate 25 mg PO HS 05/13/18 06/08/18 History multivitamin [Multiple Vitamins] 1 tab PO DAILY 05/13/18 06/08/18 History potassium chloride 20 meq PO QAM 05/13/18 06/08/18 History pravastatin 20 mg PO HS 05/13/18 06/08/18 History quinapril 5 mg PO QAM 05/13/18 06/08/18 History Patient History Medical History Atrial flutter WITH POSSIBLE A-FIB. S/P ABLATION 2015. DURING PROCEDURE HAD ACUTE CHF, AND HAD TO BE CARDIOVERTED. STILL ON ELIQUIS. DVT prophylaxis Arthritis History of TIA (transient ischemic attack) 5 YRS AGO, WAS ON PLAVIX (HAD ALLERGIC RXN), THEN AGRENOX FOR TX. NOW ON ELIQUIS. NO RESIDUAL EFFECTS History of heart failure FOLLOWING CARDIAC ABLATION/TOO MUCH FLUID DURING ABLATION PROCEDURE History of skin cancer History of tachycardia CARDIOVERSION 2015 Hyperlipidemia Hypertension Mitral valve disease RHEUMATIC. S/P REPLACEMENT 2009 Osteopenia FOSOMAX TO START AFTER SURGERY Thyroid nodule Surgical History History of cardiac catheterization 2009/PRIOR TO VALVE REPLACEMENT/RICHIE ARRIAZA History of cardiac radiofrequency ablation History of colonoscopy History of laparoscopic cholecystectomy History of mitral valve replacement 2009-[facility]/DR PALMER Social History Current Living Situation: Spouse Other Information That Helps Us Care for You: No Feels Safe at Home: Yes Smoking Status: Never smoker Do You Dip or Chew Tobacco: No Hx Alcohol Use: Yes Alcohol type: wine Alcohol Intake Frequency: a few times a month Hx Substance Use: No Beliefs That Will Affect Care: None Preferred Language: Kazakh Communication Ability: Effective Mill Operator Required: No Review of Systems ROS: well nourished well developed. No double vision blurry vision No problems with speech or swallowing No palpitations, chest pain or pressure No Wheezing or breathing issues No abdominal pain nausea vomiting diarrhea changes in appetite or weight No burning urine urine frequency or changes in color No focal joint pain or muscle pain No skin rashes or oral lesions No unusual bruising or bleeding No focused back pain Does have persistent numbness or legs consistent with her spinal anesthesia No changes in memory or confusion Physical Exam 2 Vital Signs (Past 24 Hours): Last Vital Signs Temp 36.1 C L 06/08/18 10:25 Pulse 81 06/08/18 10:35 Resp 14 06/08/18 10:35 BP 92/54 L 06/08/18 10:35 Pulse Ox 93 06/08/18 10:35 The patient appeared well nourished and normally developed. Vital signs as documented. Head exam is unremarkable. No scleral icterus or corneal arcus noted Neck is without jugular venous distension, thyromegaly, or lymphademopathy Lungs Mild rales which improve with deep inspiration at the right baseMore consistent with atelectasis Cardiac exam reveals Rhythm is regular. First and second heart sounds normal. Systolic murmur is heard Abdominal exam reveals normal bowel sounds, no masses, no organomegaly Extremities are nonedematous and both pedal pulses are PresentLeft knee immobilizer is in place Neurologic exam is A&Ox3, no focal deficits, strength is equal bilateral Skin is warm Dry without bruises or lesions
--- NOTE | 2018-06-08 11:38 | Operative Report ---
DATE OF OPERATION: 06/08/2018 PREOPERATIVE DIAGNOSIS: Left knee osteoarthritis. POSTOPERATIVE DIAGNOSIS: Left knee osteoarthritis. OPERATION PERFORMED: Left total knee arthroplasty. SURGEON: Jacoby Rajput MD SOCCER COACH: Milana Mendez. ESTIMATED BLOOD LOSS: 200 cc. IV FLUIDS: 800 mL of crystalloid. SPECIMENS: Bone and soft tissue contents from the knee. IMPLANTS: 1. Forde [employer] Nephew Oxinium size 5 left femur. 2. Forde and Nephew posterior stabilized tibial tray. 3. Forde [employer] Nephew 10 mm thickness polyethylene insert, size 3, 4. 4. A round 35 mm polyethylene patella. INDICATIONS: Ms. Forde is a very pleasant 62-year-old female who has had left knee arthritis that has been refractory to conservative management. X-rays demonstrate bone on bone arthritis with osteophyte formation in all 3 compartments. I had a long discussion with her about the risks and benefits of surgery, alternatives to surgery and expected outcomes. After reviewing all these, she elected to proceed with surgery. All questions were answered. Informed consent was signed. OPERATIVE FINDINGS: Bone on bone arthritis in all 3 compartments of the knee was encountered. A posterior stabilized total knee replacement was performed. DESCRIPTION OF PROCEDURE: The patient was identified in the preoperative holding area where her surgical site was marked. She was given a spinal as well as an adductor canal block by anesthesia and brought back to the main operating room where she was placed on the operating room table and intravenous sedation was administered. All bony prominences were padded. Perioperative antibiotics were administered. She was prepped and draped in the normal sterile fashion. Prior to incision, a multidisciplinary timeout was called. All in the room were in agreement. We began by exsanguinating the limb with an Esmarch bandage. Tourniquet was inflated to 275 mmHg. Total tourniquet time for the case was 65 minutes. A midline incision was made for a length of 14 cm. Full thickness flaps were raised above the fascia. Arthrotomy was made curving along the patella. Half of the fat pad was excised. A medial release was performed using electrocautery. The patella was everted and held with 2 towel clips. Thickness of the patella was measured to a 22 mm. We then resected 9 mm off the patella. The patella was sized for a 35 mm component. Three drill holes were placed for the patella. The trial button was placed and was resized and came back at 22.5 mm, which were very happy with. Next, the synovial tissue in the suprapatellar pouch was removed. The knee was flexed up and the notch osteophytes were removed. The cruciate ligaments were excised. The distal femoral cut was made at 5 degrees of valgus, resecting 11 mm off the distal femur. The tibia was then exposed. Lateral meniscus was excised. Tibial cutting jig was set to resect 9 mm off the less involved lateral tibial plateau. A tibial cut was made without difficulty. Extension block was then placed and she had full extension with a rectangular space. The lamina diesel truck crane operator was placed and the medial meniscus was excised. Next, the knee was flexed up and her tibia was sized to a size 4. We then sized the femur which came to a size 5. The external rotation was set at 3 degrees and the pin holes were drilled. The 5-in-1 cutting jig was then impacted into position and secured. The 5 cuts were made without difficulty. The box cut was then made. We then placed our trial femur on the cut surfaces and the fit was excellent. Next, the tibia was exposed. The size 4 tibial guide was placed in external rotation and centered on the medial one-third of the tibial tubercle. It was then pinned into position. Intramedullary drill was placed followed by the keel punch. We then trialed with a 10 mm thickness polyethylene liner. There was excellent stability through a full range of motion and patellar tracking was normal. We then irrigated all of her bony cut surfaces. While the cement was being prepared on the back table, we injected our periarticular injection cocktail into the posterior capsule of the knee, avoiding the neurovascular bundle. The periosteum was also injected along the cut femoral surfaces. The remainder of the injection cocktail was used at the conclusion of the case into the subcutaneous tissues. Once our cement was ready, a small amount of cement was placed in the posterior runners of femoral component. Cement was applied to the remaining cut surfaces of the femur. The femoral component was then impacted into position. Excess cement was removed. A lap sponge was placed over the femoral component and the tibia was subluxated forward. The tibial component was then cemented into position. The 10 mm polyethylene component was locked into the tibial tray. The knee was brought down into full extension and held there until the cement cured. The patellar button was then cemented and clamped and again held until the cement cured. At this point, the knee was irrigated with a dilute Betadine solution for 3 minutes. We then removed the dilute Betadine and placed her tranexamic acid within the wound. Once this had set for 3 minutes, the tourniquet was let down. Meticulous hemostasis was ensured. We then checked our patellar tracking and our stability for full range of motion, we were very happy with both. We then began to close. The arthrotomy was closed with interrupted 0 Vicryl sutures around the patella and running #1 Ethibond into the quadriceps and patellar tendon. Subcutaneous tissues proximally closed with interrupted 0 Vicryl. The deep dermis was run with a #2 Vicryl. The subcuticular layer was closed with a running 3-0 Monocryl. Steri-Strips were applied followed by sterile dressing. The patient was then transferred to the hospital bed. Her sedation was lifted and she was transferred to the recovery room in stable condition. POSTOPERATIVE COURSE: The patient will be admitted to the hospital floor from the recovery room. She will be weightbearing as tolerated. X-rays are pending in the PACU. We will go conservative with her IV fluids postoperatively given her history of congestive heart failure. She will be restarted on her Eliquis tomorrow morning. Internal medicine will be consulted for medical co-management. I attest to the content of the Intraoperative Record and any orders documented therein. Any exceptions are noted below. ADENIKE
[2018-06-08] MEDS: CHECK SCOPOLAMINE PATCH PLACEMENT SCH (12:16)
[2018-06-08] MEDS: KETOROLAC 30 MG/ML VIAL IV SCH ×2 (12:17→17:55)
[2018-06-08] MEDS: CLINDAMYCIN 600 MG in DEXTROSE 5% 50 ML IV SCH ×2 (13:43→21:03)
[2018-06-08] MEDS: ACETAMINOPHEN 500 MG TAB PO SCH ×2 (13:43→21:02)
[2018-06-08] MEDS ORDERED: SENNA 8.6 MG TAB PO SCH (21:00)
[2018-06-08] MEDS ORDERED: METOPROLOL SUCC 25MG EXT REL TAB PO SCH (21:00)
[2018-06-08] MEDS ORDERED: PRAVASTATIN SOD 20 MG TAB PO SCH (21:00)
[2018-06-08] MEDS: DOCUSATE SODIUM 100 MG CAP PO SCH (21:02)
[2018-06-09] MEDS: CHECK SCOPOLAMINE PATCH PLACEMENT SCH ×2 (00:20→07:59)
[2018-06-09] MEDS: KETOROLAC 30 MG/ML VIAL IV SCH ×2 (00:20→05:29)
[2018-06-09] MEDS: ACETAMINOPHEN 500 MG TAB PO SCH (05:26)
[2018-06-09 06:34] LABS: Hematocrit (blood only) 28.9 % (37-47); Hemoglobin 9.9 g/dL (12.0-16.0); Mean Corpuscular Hgb Conc 34.3 g/dL (32-36); Mean Corpuscular Volume 92.9 fL (80-100); Mean Platelet Volume 9.8 fL (7.4-10.4); Platelet Count 145 K/uL (130-400); RDW Coefficient of Variation 12.4 % (11.5-14.5); RDW Standard Deviation 42.4 fL (36.4-46.3); Red Blood Count 3.11 M/uL (4.2-5.4); White Blood Count 10.89 K/uL (4.8-10.8)
[2018-06-09 07:06] LABS: BUN Creatinine Ratio 22.8 (10-20); Calcium 8.3 mg/dl (8.5-10.1); Creatinine Clr Calc Pharmacy 75.8 ml/min; Est GFR (African American) 91.6; Potassium 4.3 mmol/L (3.5-5.1)
[2018-06-09] MEDS ORDERED: dexAMETHasone 4 MG TAB PO SCH (08:00)
[2018-06-09] MEDS ORDERED: MULTIVITAMIN TAB PO SCH (09:00)
[2018-06-09] MEDS ORDERED: APIXABAN 5 MG TABLET PO SCH (09:00)
[2018-06-09] MEDS ORDERED: NON-FORMULARY MEDICATION (Coenzyme Q10 [Coq-10] 200 MG) PO SCH (09:00)
[2018-06-09] MEDS ORDERED: PANTOprazole 40 MG TAB PO SCH (09:00)
[2018-06-09] MEDS ORDERED: POTASSIUM CHLORIDE 20 MEQ TABCR PO SCH (09:00)
[2018-06-09] MEDS ORDERED: FUROSEMIDE 20 MG TAB PO SCH (09:00)
[2018-06-09] MEDS ORDERED: METOPROLOL SUCC 25MG EXT REL TAB PO SCH (09:00)
[2018-06-09] MEDS ORDERED: ENALAPRIL MALEATE 5 MG TAB PO SCH (09:00)
[2018-06-09] MEDS ORDERED: CALCIUM 600MG + VIT D 400 IU TAB PO SCH (09:00)
[2018-06-09] MEDS: OXYCODONE HCL IR 5 MG TAB (IMMEDIATE RELEASE) PO PRN ×2 (09:22→10:46)
[2018-06-09] MEDS: DOCUSATE SODIUM 100 MG CAP PO SCH (09:23)
--- NOTE | 2018-06-09 09:44 | Orthopedic Progress Note ---
Date of Service June 09, 2018 Assessment & Plan (1) Osteoarthritis of left knee: S/P L TKR POD 1 *Patient doing well. Would like to be D/Cd today to home. *Plan to be D/Cd once seen by PT and Medicine *Knee immobilizer for another 24hrs or until good quad control with ambulation and use of walker *D/C with HHPT until f/u appointment *Silvalone dressing to remain intact until f/u. *Ice to knee as needed for pain and swelling *Oxycodone and or tylenol for pain control *Will await Medicine recommendations regarding her heart/blood pressure medications and how to take upon D/C. Until she is seen, the meds were held this AM. Did recommend patient contact her Implementation Technician to discuss these medications and dosing due to her low blood pressure inhouse. *Patient will continue Elequis for DVT prophylaxis and instructed on breanna hose to wear until f/u appointment. *Was advised to call the office if she has any questions or concerns. Present on Admission?: Yes Subjective Patient sitting up in bed with in the room. She overall is doing good. Has no complaints. Pain is controlled on tylenol. Rates at most 2/10. Denies f/c/s, CP, SOB, N/T/R in legs, denies dizziness, lightheadedness, visual issues. Aware her BP has been running low since her hospital stay. Says it generally runs low in the low 100s over 70s. Tolerating PO diet. She would like to go home today. Has not yet been seen by Medicine who consulted with her yesterday. Physical Exam 2 Vital Signs (Past 24 Hours): Last Vital Signs Temp 36.6 C 06/09/18 07:21 Pulse 88 06/09/18 07:21 Resp 18 06/09/18 07:21 BP 90/54 L 06/09/18 09:15 Pulse Ox 93 06/09/18 07:21 Physical Exam: Laying in bed. B SCDs on. Left knee with ice on. Sharath bandage intact. Upon removal, silvalone intact with dry blood visible thru center of dressing. Left quad intact. 2+ left knee effusion. 1+ pitting edema L LE. No pitting edema R LE. B LE NV intact with palpable DP and PT pulses. Neg homans, calves soft. Able to wiggle feet and ankles. Brisk capillary refill. Sensation intact to light touch. Results & Data Laboratory Results 06/09/18 06/09/18 Range/Units 06:21 06:21 WBC 10.89 H (4.8-10.8) K/uL RBC 3.11 L (4.2-5.4) M/uL Hgb 9.9 L (12.0-16.0) g/dL Hct 28.9 L (37-47) % MCV 92.9 (80-100) fL MCH 31.8 (25-34) pg MCHC 34.3 (32-36) g/dL RDW Std Deviation 42.4 (36.4-46.3) fL RDW Coeff of Lillian 12.4 (11.5-14.5) % Plt Count 145 (130-400) K/uL MPV 9.8 (7.4-10.4) fL Sodium 140 (136-145) mmol/L Potassium 4.3 (3.5-5.1) mmol/L Chloride 109 H (98-107) mmol/L Carbon Dioxide 24 (21-32) mmol/L Anion Gap 7.0 (3-11) BUN 18 (7-18) mg/dl Creatinine 0.80 (0.6-1.2) mg/dl Est Cr Clr Drug Dosing 75.8 ml/min Est GFR ( Amer) 91.6 Est GFR (Non-Af Amer) 79.0 BUN/Creatinine Ratio 22.8 H (10-20) Glucose 113 H (70-99) mg/dl Calcium 8.3 L (8.5-10.1) mg/dl
[2018-06-09] MEDS ORDERED: OXYCODONE HCL IR 5 MG TAB (IMMEDIATE RELEASE) PO ONE (10:47)
[2018-06-09 10:53] VITALS: TEMP 98.4; O2SAT 93
[2018-06-09 11:08] VITALS: BP 109/72; PULSE 84
--- NOTE | 2018-06-09 11:24 | Anesthesiology Progress Note ---
Date of Service June 09, 2018 Anesthesia Post Procedure Vital Signs Vital Signs: Temp Pulse Pulse Resp BP BP Pulse Ox 06/09/18 11:00 36.9 C 84 86 18 97/64 L 109/72 93 06/09/18 10:52 36.9 C 86 18 97/64 L 93 06/09/18 09:54 97 H 18 109/72 94 06/09/18 09:15 90/54 L 06/09/18 07:21 36.6 C 88 18 93/56 L 82/48 L 93 06/09/18 03:30 36.7 C 90 16 84/56 L 95 06/08/18 23:59 36.3 C L 94 H 16 93/54 L 94 06/08/18 21:34 36.4 C L 87 18 81/51 L 91 06/08/18 16:02 84 90/56 L 06/08/18 15:07 36.2 C L 82 16 79/48 L 90 06/08/18 13:48 83 14 85/53 L 94 06/08/18 12:48 81 18 98/66 L 91 06/08/18 11:45 75 18 89/59 L 91 Pain Intensity Left Knee: Pain Intensity: 2 Notes Mental Status: alert / awake / arousable and participated in evaluation Patient Amnestic to Procedure: Yes Nausea / Vomiting: adequately controlled Pain: adequately controlled Airway Patency, RR, SpO2: stable & adequate Hydration State: stable & adequate Neuraxial Anesthesia: was administered and sensory block is resolving Anesthetic Complications: no major complications apparent and Pt Satisfied with anesthetic care
--- NOTE | 2018-06-09 12:40 | Discharge Summary ---
Date of Service June 09, 2018 Admission HPI Per Admitting Provider HISTORY OF PRESENT ILLNESS: This 62-year-old female presents to clinic today for preoperative history and physical. The patient complains of significant left knee pain with gait disturbance that has been ongoing since a trip to [place] this past November. She states she has had persistent knee pain for several years but states that the pain was exacerbated during that trip and since that time has had no relief with injections or physical therapy or the use of nonsteroidal or pain relieving agents. She states that pain in her knee is starting to affect her left hip due to her gait abnormality and is affecting her activities of daily life. Admission Exam Per Admitting Provider PHYSICAL EXAMINATION: Skin: The patient's skin is normal in appearance. No open skin lesions or discharge. Eyes: Pupils are equal and react to light and accommodating. Extraocular movements are intact. Throat: Posterior pharynx is clear with absence of edema, erythema or exudate. Cardiovascular exam: The patient has a grade 2/6 holosystolic murmur heard best over the left upper sternal border and apex. Otherwise there are no gallops appreciated. She has a regular rate and rhythm noted on auscultation. Lungs: Auscultation of lung sandhu reveals clear breath sounds throughout with no wheezing, rales or rhonchi. Abdomen is obese, nondistended, nontender with normoactive bowel sounds. Extremities: Left knee, patient is able to reach 4 degrees of extension, 115 degrees of flexion. There is audible crepitation with range of motion. There is medial and lateral joint line tenderness when the knee is palpated in flexed position. There is visible varus alignment noted in the left knee. Patient has no varus or valgus laxity, negative AP drawer sign, negative Reagan test. Her left calf is soft and supple, nontender to palpation. Her patella is nonmobile due to arthritic changes. She is neurovascularly intact in the left lower extremity. Neurological exam: Cranial nerves 2 through 12 are intact. No motor or sensory deficit. Psychological/general exam: Patient is alert and oriented x3 with proper grooming and hygiene. Principal Diagnosis DIAGNOSIS: Left knee osteoarthritis. Discharge Exam Laying in bed. B SCDs on. Left knee with ice on. Sharath bandage intact. Upon removal, silvalone intact with dry blood visible thru center of dressing. Left quad intact. 2+ left knee effusion. 1+ pitting edema L LE. No pitting edema R LE. B LE NV intact with palpable DP and PT pulses. Neg homans, calves soft. Able to wiggle feet and ankles. Brisk capillary refill. Sensation intact to light touch. Discharge Data Allergies Allergy/AdvReac Type Severity Reaction Status Date / Time Penicillins Allergy Severe ANAPHYLAXIS Verified 06/08/18 05:43 clopidogrel Allergy Intermediate rash Verified 06/08/18 05:43 rifampin Allergy Intermediate rash Verified 06/08/18 05:43 clarithromycin AdvReac Intermediate nausea Verified 06/08/18 05:43 lisinopril AdvReac Intermediate cough Verified 06/08/18 05:43 hydrochlorothiazide AdvReac Mild headache Verified 06/08/18 05:43 Consultations 06/08/18 09:29 Consult Case Management - Discharge Planning Routine 06/08/18 09:34 Consult Hospitalist Routine Procedures Performed Operation Date: 06/08/18 07:00 Actual Procedures p Left Total Knee Arthroplasty(Left) - Jacoby Rajput MD Ordered Studies 06/08/18 05:00 US - OR guided needle placemen Routine Hospital Course (1) Osteoarthritis of left knee: Patient did develop some asymptomatic hypotension post operatively and was evaluated by Medicine. She was cleared for discharge this AM by medicine after her BP normalized. Otherwise she did very well over night and had very little pain post op. S/P L TKR POD 1 *Patient doing well. Would like to be D/Cd today to home. *Plan to be D/Cd once seen by PT and Medicine *Knee immobilizer for another 24hrs or until good quad control with ambulation and use of walker *D/C with HHPT until f/u appointment *Silvalone dressing to remain intact until f/u. *Ice to knee as needed for pain and swelling *Oxycodone and or tylenol for pain control *Will await Medicine recommendations regarding her heart/blood pressure medications and how to take upon D/C. Until she is seen, the meds were held this AM. 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 *Patient will continue Elequis for DVT prophylaxis and instructed on ariana hose to wear until f/u appointment. *Was advised to call the office if she has any questions or concerns. Total Time Total Time Spent Total Time Spent (In Minutes): 25 Total Time Includes: Examination of the Patient, Discharge Planning, Medication Reconciliation and Communication With Other Providers Discharge Plan Discharge Items Patient Disposition: Home - Home Health Services Reason For Visit: Left Knee Osteoarthritis Discharge Diagnosis: Left knee osteoarthritis Discharge Goals: Decrease discomfort, Improve function and Increase independence Activity: As commented below Lifting: None Bathing: Keep incision dry Bathing Comment: May shower tomorrow Sexual Activity: Wait until after follow-up appointment Exercise/Sports: Wait until after follow-up appointment Weightbearing Comment: as tolerate with immobilizer for first 48 hrs and with walker assistance Non-emergency contact: Primary Care Provider Call non-emergency contact if: you have any medication questions, your pain is not controlled, your temperature is above 101.5, your wound has increased drainage and your wound pain has increased Follow-up/Referrals: Hira Morse [Primary Care Provider] - Diet: Regular Addtl Provider Instructions: Post-operative Instructions Dear Patient and Family/Friends, Before you are discharged from the hospital, it is important to know what to expect when you get home after surgery. To that end, we have created this sheet of discharge instructions which covers many commonly asked questions. Make sure you go through this sheet in its entirety with your nurse before you are discharged. Please note that we will go over the specifics of your surgery and recovery when you return for your first post-operative visit. Sincerely, Dr. Rajput Post Op Medications: You will be discharged with a prescription for Oxycodone for pain control. You can take 1-2 tablets every 4-6 hrs for breakthrough pain. We would like you to take 2 Extra Strength Tylenol every 6-8 hrs for pain control for the first 30 days post operatively. Also you will be restarted on your Eliquis before discharge. You will use this medication along with the ARIANA stockings to prevent blood clots post surgically. Pain Expect to be in a fair amount of pain after surgery. Remember, our goal is not to eliminate your pain, but to make it tolerable. It is a good idea to stay ahead of your pain by taking the medications you were prescribed once you get home. Typically, the pain starts improving 3-7 days after surgery. You should start weaning off the narcotic pain medication (oxycodone, hydrocodone, hydromorphone, morphine) as soon as your pain improves. Please call our office if your pain is not adequately controlled. Ice Ice your operative site at least 5 times a day for 15-30 minutes at a time. Make sure you have a thin cloth between the ice or cooling unit and your skin to prevent wood bite. This is especially important if you received a nerve block. Continue icing your operative site for the first 5-7 days after surgery , then as needed. Diet/Nausea/Vomiting Start by drinking clear liquids and eating crackers. If you can tolerate this, then you may resume your normal diet. If you feel nauseated or vomit, take Zofran/ondansetron (if prescribed). Please call our office if you have intractable nausea or vomiting, or, if after hours, you may go to the Emergency Room for help. Constipation Constipation is a common side effect of narcotic pain medication. If you have not had a bowel movement within 2 days after surgery, we recommend purchasing an over the counter laxative such as Milk of Magnesia, Dulcolax, or Miralax from a local pharmacy, and taking it as instructed. Call our clinic if any questions. Slings and Braces If you were placed in a sling or brace, it must be worn at all times, including sleep. You may remove your sling or brace for physical therapy, home exercises , and showering. The length of time you will be in your brace and range of motion restrictions depends on what surgery you had; these details will be reviewed at your first post-operative appointment. Nerve block The anesthesia team sometimes places a nerve block to help with post-operative pain control. This results in significant numbness and inability to move the extremity. The nerve block usually wears off in 8-12 hours, but sometimes can last up to 24 hours. Please call our office if you are still unable to move your extremity after 24 hours, unless you received a pain pump to take home. Nerve blocks typically wear off quickly, so start taking pain medication as soon as you start feeling soreness near your surgical site. Weight bearing and Range of Motion. Do not bear any weight through your operative extremity immediately after surgery. If you had upper extremity surgery, do not lift anything with that arm. If you are in a knee brace, keep it locked in place until your follow-up. We will discuss your weight bearing, range of motion, and lifting restrictions in detail at your first post-operative appointment. Continuous Passive Motion (CPM) Machine If you were prescribed a CPM machine, it will start after your first post- operative appointment, at which time we will give you instructions on the range of motion settings and duration of treatment Physical therapy You will be given a prescription for physical therapy or occupational therapy at your first post-operative appointment. Typically, patients start therapy within 1 week of surgery Wound care and showering We will inspect your wound at your first post-operative visit, and may do a dressing change at that time. Most patients will be in a water-proof dressing that is removed 14 days after surgery. It is normal to see some dried blood on the dressing. Do not remove your dressing, paper strips or sutures yourself unless you are given permission. Showering is allowed the day after surgery. Do not scrub or remove any dressings. The wound should not be submerged underwater (i.e. in a bathtub or pool) until 4 weeks after surgery ARIANA stockings If you were given white stockings, these are to be worn at all times except to shower (on both legs) for the first 2 weeks after surgery. Driving You may not drive while taking narcotic pain medication or while in a cast, splint, sling or brace. You, the patient, need to make the final determination about when you are safe to drive, however, the earliest you may consider driving after surgery is below: Hand/Wrist/Elbow Surgery: 3 days Shoulder Surgery: 2 weeks Hip,/Knee/Ankle Surgery: 4 weeks Fracture repair: 6 weeks Return to Work Your return to work depends on what surgery was done and what type of work you do. Please bring any paperwork your employer needs completed to your first post -operative visit. Also, bring a description of your job duties, as this helps us to understand what risks you may face at work. Travel Avoid long distance travel (greater than 1 hour) in airplanes and cars for the first 6 weeks after surgery. If you must travel, you need to have a Doppler ultrasound done before you travel to rule out a blood clot in your legs. Follow-up You should have a follow-up appointment already scheduled 1-2 days after surgery. If not, please contact our office to make this appointment before you leave the hospital. When to call the office It is normal to have swelling and bruising in the limb that was operated on. This will improve with time. It is also normal to have fevers for the first 2 days after surgery. Reasons you should call your doctor include: Uncontrolled pain; Nausea, vomiting, or constipation that does not improve with medication; Fevers over 101.5, chills, sweats; Drainage or bleeding from the wound; Foul odor; Spreading areas of redness; Any other concerns PLEASE CALL YOUR SWIMMER UPON D/C REGARDING YOUR LOW BLOOD PRESSURE DURING YOUR HOSPITAL STAY AND FOLLOW HIS INSTRUCTION REGARDING YOUR HEART MEDICATION METOPROLOL, QUNAPRIL, AND LASIX. Prescriptions: New oxycodone 5 mg tablet 5 mg PO Q6H PRN (Reason: pain) Qty: 30 RF: 0 ferrous sulfate [iron] 325 mg (65 mg iron) tablet 325 mg PO BID Qty: 28 RF: 0 Continue multivitamin [Multiple Vitamins] Tablet 1 tab PO DAILY RF: 0 calcium carbonate [Calcium 600] 600 mg calcium (1,500 mg) Tablet 1 dose PO DAILY RF: 0 quinapril 5 mg Tablet 5 mg PO QAM RF: 0 pravastatin 20 mg Tablet 20 mg PO HS RF: 0 furosemide 20 mg Tablet 20 mg PO QAM RF: 0 metoprolol succinate 25 mg Tablet Extended Release 24 Hr 25 mg PO HS RF: 0 metoprolol succinate 25 mg Tablet Extended Release 24 Hr 12.5 mg PO QAM RF: 0 apixaban [Eliquis] 5 mg Tablet 5 mg PO BID RF: 0 potassium chloride 20 mEq Tablet Extended Release 20 meq PO QAM RF: 0 coenzyme Q10 [CoQ-10] 100 mg Capsule 200 mg PO DAILY RF: 0 Stand-Alone Forms: [facility], Opioid Pain Management Discharge Orders: Discharge Order (Routine); Ordered 06/09/18 Ordered By: Emilia Bolanos Admission Data Admit Date/Time: 06/08/18 09:29 Attending Provider: Jacoby Rajput Admit Provider: Jacoby Rajput Primary Care Provider: Hira Morse Other Providers: Alfonzo Hyman Service: Surgical Services Other Interventions: Discharge Summary Assessment (RN) Last Done: 06/09/18 11:00 DC Date/Time DO NOT enter until pt leaves facility: 06/09/18 12:11
--- NOTE | 2018-06-09 17:15 | Hospitalist Progress Note ---
Date of Service June 09, 2018 Assessment & Plan (1) Atrial flutter: Remains on eliquis, metoprolol, history of chronic systolic heart failure maintained on lasix, she also has a bioprosthetic ophelia valve (2) Hypertension: BP mildly low on 06/09. No symptoms. Patient was told to half her evening metoprolol dose (to 12.5mg) and wait until tomorrow to start her enalapril. In the late morning, BP was returning to normal for her (~110/70). (3) Hyperlipidemia: preavchol is continued Subjective Patient standing up brushing teeth. Feels very well. Reports no fevers/chills, chest pain, shortness of breath, abdominal pain, nausea, or vomiting. Physical Exam 2 Vital Signs (Past 24 Hours): Last Vital Signs Temp 36.9 C 06/09/18 11:00 Pulse 84 06/09/18 11:00 Resp 18 06/09/18 11:00 BP 109/72 06/09/18 11:00 Pulse Ox 93 06/09/18 11:00 ENMT: Mouth: no chipped teeth and no loose teeth Neck: normal visual inspection; neck extension not limited Respiratory: normal respiratory effort Auscultation: lungs clear to auscultation bilaterally Cardiovascular: Rate/Rhythm: regular rate and regular rhythm Heart Sounds: no murmur Vessels: no carotid bruit Extremities: no edema Neurologic: moves all extremities Psychiatric: Orientation: alert and oriented x 3
[2018-06-09] MEDS ORDERED: CeleBREX 200 MG CAP PO SCH (21:00)
[2018-06-10] MEDS ORDERED: ENALAPRIL MALEATE 5 MG TAB PO SCH (09:00)
== END 2018-06-09 12:11 | disposition home health service (06) | DRG 470 ==
LOC: ASU 05:15 → 3E 09:29

== ENCOUNTER 2018-07-10 11:45 | Inpatient (IN) ==
[2018-07-10] MEDS ORDERED: METOPROLOL TARTRATE 1 MG/ML VIAL IV STA ×2 (12:11→12:59)
[2018-07-10 12:12] LABS: Basophils # (auto) 0.03 K/uL (0-0.2); Basophils % (auto) 0.3 %; Eosinophils # (auto) 0.12 K/uL (0-0.5); Eosinophils % (auto) 1.3 %; Hematocrit (blood only) 39.8 % (37-47); Hemoglobin 13.2 g/dL (12.0-16.0); Immature Granulocytes # (auto) 0.01 K/uL (0.00-0.02); Immature Granulocytes % (auto) 0.1 %; Lymphocytes # (auto) 1.77 K/uL (1.2-3.4); Lymphocytes % (auto) 18.5 %; Mean Corpuscular Hgb Conc 33.2 g/dL (32-36); Mean Corpuscular Volume 92.8 fL (80-100); Mean Platelet Volume 10.2 fL (7.4-10.4); Monocytes # (auto) 0.75 K/uL (0.11-0.59); Monocytes % (auto) 7.8 %; Neutrophils # (auto) 6.89 K/uL (1.4-6.5); Platelet Count 293 K/uL (130-400); RDW Coefficient of Variation 13.1 % (11.5-14.5); Red Blood Count 4.29 M/uL (4.2-5.4); White Blood Count 9.57 K/uL (4.8-10.8)
--- NOTE | 2018-07-10 12:34 | XRay Report ---
XR chest 1V portable HISTORY: dysrhythmia COMPARISON: Chest 03/22/2016. FINDINGS: No pneumothorax. No pleural effusions. The right basilar linear densities favor subsegmenta l atelectasis or scarring. The left lung is clear. The heart remains mildly enlarged. No evidence for pulmonary edema. IMPRESSION: 1. Stable mild cardiomegaly. 2. Right basilar linear densities favor subsegmental atelectasis. Electronically signed by: Speedy Esteves M.D. 07/10/2018 12:33 PM
[2018-07-10 12:35] LABS: Alanine Aminotransferase 24 U/L (12-78); Albumin Level 3.8 gm/dl (3.4-5.0); Aspartate Aminotransferase 29 U/L (15-37); BUN Creatinine Ratio 19.8 (10-20); Blood Urea Nitrogen 14 mg/dl (7-18); Calcium 8.9 mg/dl (8.5-10.1); Carbon Dioxide 25 mmol/L (21-32); Chloride 105 mmol/L (98-107); Creatinine Clr Calc Pharmacy 83.5 ml/min; Est GFR (Non-African American) 89.8; Glucose 139 mg/dl (70-99); Potassium 3.9 mmol/L (3.5-5.1); Sodium 139 mmol/L (136-145)
--- NOTE | 2018-07-10 12:48 | Ultrasound Report ---
LEFT LOWER EXTREMITY VENOUS DOPPLER HISTORY: Left leg SWELLING, ?DVT COMPARISON STUDY: None. FINDINGS: There is normal compressibility, flow, and augmentation within the left lower extremity artemio p venous system. IMPRESSION: No DVT within the left lower extremity. Electronically signed by: Speedy Esteves M.D. 07/10/2018 12:47 PM
[2018-07-10 12:50] LABS: Albumin Globulin Ratio 0.9 (0.9-2); Alkaline Phosphatase 123 U/L (45-117); Bilirubin,Total 0.2 mg/dl (0.2-1); Globulin 4.4 gm/dl (2.5-4.0); Total Protein 8.2 gm/dl (6.4-8.2); Troponin I < 0.015 ng/ml (0-0.045)
[2018-07-10 13:28] LABS: Partial Thromboplastin Time 26.8 Seconds (21.0-31.0); Prothrombin Time 10.5 Seconds (9.0-12.0)
--- NOTE | 2018-07-10 14:55 | History & Physical Report ---
Date of Service July 10, 2018 Assessment & Plan (1) Atrial flutter: HR has been faster since her left TKA in 05/2018. Unclear cause of her acute tachycardia. LLE Doppler was negative on 07/10, and she is on anticoagulation anyhow for the afib/aflutter, so clot elsewhere is unlikely. TSH was 1.2 on admission. No signs of volume overload for worsening CHF being the precipitant. Of note, patient only takes her Lasix PRN now. She did last night, but otherwise, has not had to frequently. - Continue home meds - Metoprolol 2.5mg IV Q2h PRN for HR > 110 - Cardiology consult - Telemetry - Monitor BP (2) Hypertension: Per patient, has been lower than usual after surgery (thought to be due to volume loss). In ED, it was 105/75. - Continue home meds - Monitor closely if she needs extra metoprolol IV pushes (3) History of TIA (transient ischemic attack): Per notes, it was >5 years ago. Was on Plavix for awhile, but now on Eliquis for the afib. No residual deficits. - Monitor (4) Mitral valve disease: S/p mitral valve replacement. - No acute medical concern (5) DVT prophylaxis: On anticoagulation for afib History of Present Illness Primary Care Provider: Hira Morse 62yo F w/ hx of aflutter s/p ablation and left total knee replacement in 2018 who presents with tachycardia and aflutter. Per patient, she was in her normal state of health and doing her knee exercises this morning when she noted her heart racing. She took her pulse and found it to be 150. It dropped to 68 for a minute, but then went up to the 140 range and stayed there. 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 Chowdhury responded and recommended she be seen. In the ED, she got 5mg metoprolol and improved the HR to the 90s, but then it went back up to the 140s when she walked around, and she asked to stay in the hospital. At present, she feels quite well, and denies any shortness of breath, orthopnea , any chest pain or palpitations, any nausea or vomiting, or MSK pain. She notes that she used the Lasix yesterday, but since her surgery, she reports she has been told to only take the Lasix PRN due to no LE edema and lower BPs. Allergies Allergy/AdvReac Type Severity Reaction Status Date / Time Penicillins Allergy Severe ANAPHYLAXIS Verified 07/10/18 12:39 clopidogrel Allergy Intermediate rash Verified 07/10/18 12:39 rifampin Allergy Intermediate rash Verified 07/10/18 12:39 clarithromycin AdvReac Intermediate nausea Verified 07/10/18 12:39 lisinopril AdvReac Intermediate cough Verified 07/10/18 12:39 hydrochlorothiazide AdvReac Mild headache Verified 07/10/18 12:39 Home Medications Home Medications Medication Instructions Recorded Confirmed Type apixaban [Eliquis] 5 mg PO BID 05/13/18 07/10/18 History calcium carbonate [Calcium 600] 1 dose PO DAILY 05/13/18 07/10/18 History coenzyme Q10 [CoQ-10] 200 mg PO DAILY 05/13/18 07/10/18 History furosemide 20 mg PO QAM 05/13/18 07/10/18 History metoprolol succinate 12.5 mg PO QAM 05/13/18 07/10/18 History metoprolol succinate 25 mg PO HS 05/13/18 07/10/18 History multivitamin [Multiple Vitamins] 1 tab PO DAILY 05/13/18 07/10/18 History potassium chloride 20 meq PO QAM 05/13/18 07/10/18 History pravastatin 20 mg PO HS 05/13/18 07/10/18 History quinapril 5 mg PO QAM 05/13/18 07/10/18 History Past Med/Surg History Medical History Atrial flutter WITH POSSIBLE A-FIB. S/P ABLATION 2015. DURING PROCEDURE HAD ACUTE CHF, AND HAD TO BE CARDIOVERTED. STILL ON ELIQUIS. Arthritis DVT prophylaxis History of TIA (transient ischemic attack) 5 YRS AGO, WAS ON PLAVIX (HAD ALLERGIC RXN), THEN AGRENOX FOR TX. NOW ON ELIQUIS. NO RESIDUAL EFFECTS History of heart failure FOLLOWING CARDIAC ABLATION/TOO MUCH FLUID DURING ABLATION PROCEDURE History of skin cancer History of tachycardia CARDIOVERSION 2015 Hyperlipidemia Hypertension Mitral valve disease RHEUMATIC. S/P REPLACEMENT 2009 Osteopenia FOSOMAX TO START AFTER SURGERY Thyroid nodule Surgical History History of cardiac catheterization 2010/PRIOR TO VALVE REPLACEMENT/[facility]IE ARRIAZA History of cardiac radiofrequency ablation History of colonoscopy History of laparoscopic cholecystectomy History of mitral valve replacement 2009-[facility]/DR PALMER Family History Mother Atrial fibrillation CVA (cerebral vascular accident) Other HTN (hypertension) Heart disease Social History marital status: Feels Safe at Home: Yes Smoking Status: Never smoker Preferred Language: Malian Review of Systems Constitutional: no fever, no chills and no sweats Eyes: no diplopia Ear, Nose, Mouth, Throat: no ear trauma, no nasal discharge and no dental pain Respiratory: no cough, no chest congestion and no dyspnea Cardiovascular: + palpitations and + edema; no chest pain, no dyspnea, no dyspnea on exertion and no syncope Gastrointestinal: no abdominal pain, no belching, no constipation, no diarrhea/ loose stools, no blood in stools and no melena Musculoskeletal: no back pain, no joint pain and no muscle weakness Integumentary: no rash, no skin ulcer and no erythema Neurologic: no generalized weakness, no loss of sensation, no numbness and no paresthesia Psychiatric: no depression and no anxiety Endocrine: no fatigue, no polydipsia and no polyphagia Physical Exam 2 Vital Signs (Past 24 Hours): Last Vital Signs Temp 36.3 C L 07/10/18 11:49 Pulse 106 H 07/10/18 13:01 Resp 15 07/10/18 13:01 BP 119/90 07/10/18 13:01 Pulse Ox 97 07/10/18 13:01 Constitutional: WD/WN, vitals as above + obese and cooperative Eyes: EOM intact bilaterally; no conjunctival abnormality ENMT: external ear and nose normal, oropharynx normal Neck: trachea midline, no thyromegaly normal visual inspection Respiratory: normal respiratory effort, lungs clear to auscultation no respiratory distress Cardiovascular: Rate/Rhythm: + tachycardic; + abnormal rhythm Heart Sounds : normal S1 and normal S2 Gastrointestinal (Abdomen): Inspection/Auscultation: abdomen normal to inspection; abdomen not distended Musculoskeletal: no cyanosis or clubbing, extremities motor strength 5/5 Skin: no rashes, warm and dry Neurologic: moves all extremities and awake Psychiatric: Orientation: alert, oriented to person and cooperative
--- NOTE | 2018-07-10 15:33 | Emergency Department Note ---
Entered by Roxy Carrera acting as a scribe for ED Provider Note CHIEF COMPLAINT: Tachycardia HISTORY OF PRESENT ILLNESS: The patient is a 62 year old female who presents to the Emergency Room with complaints of constant tachycardia that started prior to arrival. The patient notes she has been having problems since her knee surgery on June 08. She reports she was prescribed metoprolol and took 25 mg of it this morning and her heart rate started increasing. Pt denies LOC, headache, fevers, chills, diaphoresis, visual changes, neck pain , chest pain, breathing difficulties, nausea, vomiting, abdominal pain, back pain, melena, hematochezia, urinary symptoms, numbness, weakness, lymphadenopathy, rash, or other complaints. REVIEW OF SYSTEMS: See HPI for pertinent positives and negatives. A total of ten systems were reviewed and were otherwise negative. PMHx/PSHx: Heart disease Osteoarthritis of left knee Chest pain Atrial flutter Hypertension SOCIAL HISTORY: Patient lives at home. PHYSICAL EXAM: GENERAL: Awake, alert, well-appearing, in no distress HENT: Normocephalic, atraumatic. Oropharynx unremarkable. EYES: Normal conjunctiva. Sclera non-icteric. NECK: Inspection normal. Non-tender. Supple. No nuchal rigidity. FROM. No masses. RESPIRATORY: Clear to auscultation. No wheezes. No rales. Normal respiratory effort. CARDIAC: Very tachycardic rate. Normal rhythm. No murmurs. No rubs. Extremities warm and well perfused. Pulses equal. No JVD. GI: Soft, non-distended. No tenderness to palpation. No rebound or guarding. No masses. RECTAL: Deferred. MUSCULOSKELETAL: Atraumatic. Chest examination reveals no tenderness. The back is symmetrical on inspection without obvious abnormality. There is no CVA tenderness to palpation. No joint edema. LOWER EXTREMITIES: Calves are equal size bilaterally and non-tender. No edema. No discoloration. NEURO: Normal sensorium. No sensory or motor deficits noted. SKIN: No rash or jaundice noted. EMERGENCY DEPARTMENT COURSE: 1206: Past medical records reviewed. The patient was evaluated in room A12B, and a complete history and physical examination were performed. Cardiac monitoring showed elevated PVCs 1302: I checked on the patient. The patient feels better although she still feels palpitations. Her heart rate has improved. She is getting a second dose of lopressor. 1334: I reviewed the patient's case with Dr. Chowdhury, Internal medicine- cardiovascular disease. He said to do ambulatory trial and will call back. 1345: I reviewed the patient's case with Dr. Chowdhury, Internal medicine- cardiovascular. He said the patient has atrial flutter since her blood pressure went up to 140 after she ambulated. He recommended for the patient to be admitted for cardiology consultation and treatment. 1349: I reevaluated the patient and updated hrt on test results. I discussed the treatment plan with her. The patient verbally agreed and understood. 1359: I reviewed the patient's case with Dr. Hyman, [facility]-Hospitalist. He will evaluate the patient for further management. MEDICAL DECISION MAKING: Triage Nursing notes reviewed and agree them. Additional history obtained from the family. The patient's history was concerning for palpitations. Differential diagnosis: Etiologies such as electrolyte abnormality, cardiac dysrhythmia, thyroid dysfunction, pulmonary embolism, infection, gastrointestinal, as well as others were entertained. Physical examination: Rapid a flutter noted. ER treatment provided: Cardiac monitoring. IV Lopressor 2.5 mg x2 On reassessment the patient felt better, heart rate better controlled however she would become tachycardic into the 140 range with any ambulation. Diagnostic interpretation by me: The electrocardiogram was consistent with rapid a flutter. Repeat ECG revealed persistent a flutter. The labs revealed an unremarkable CBC and chemistry panel. TSH negative. Troponin negative. Imaging studies: Chest x-ray as above. Consultation: Consultation was made with cardiology. The patient has a flutter with RVR. She will need further management in the hospital. A consultation was placed with the hospitalist. The case was discussed and diagnostics were reviewed. The patient was evaluated in the ER for further treatment. IMPRESSION: Atrial flutter with RVR PLAN: Admit The scribe's documentation has been prepared under my direction and personally reviewed by me in its entirety. I confirm that the note above accurately reflects all work, treatment, procedures, and medical decision making performed by me. CRITICAL CARE: I have personally spent greater than 30 minutes of critical care time in the direct management of this patient. This includes bedside care, interpretation of diagnostic studies, and testing, discussion with consultants, patient, and family members, and other required patient management activities. This 30 minutes is in excess of all separately billable procedures. Impression & Plan Atrial flutter with rapid ventricular response Past Med/Surg History Medical History Atrial flutter WITH POSSIBLE A-FIB. S/P ABLATION 2016. DURING PROCEDURE HAD ACUTE CHF, AND HAD TO BE CARDIOVERTED. STILL ON ELIQUIS. Arthritis DVT prophylaxis History of TIA (transient ischemic attack) 5 YRS AGO, WAS ON PLAVIX (HAD ALLERGIC RXN), THEN AGRENOX FOR TX. NOW ON ELIQUIS. NO RESIDUAL EFFECTS History of heart failure FOLLOWING CARDIAC ABLATION/TOO MUCH FLUID DURING ABLATION PROCEDURE History of skin cancer History of tachycardia CARDIOVERSION 2015 Hyperlipidemia Hypertension Mitral valve disease RHEUMATIC. S/P REPLACEMENT 2009 Osteopenia FOSOMAX TO START AFTER SURGERY Thyroid nodule Surgical History History of cardiac catheterization 2009/PRIOR TO VALVE REPLACEMENT/RICHIE ARRIAZA History of cardiac radiofrequency ablation History of colonoscopy History of laparoscopic cholecystectomy History of mitral valve replacement 2009-[facility]/DR PALMER Social History marital status: Feels Safe at Home: Yes Smoking Status: Never smoker Preferred Language: Kinyarwanda Results & Data Vital Signs Vital Signs - 24 hr 07/10/18 11:49 07/10/18 12:01 07/10/18 12:02 Temperature 36.3 C L Temperature Source Oral Sepsis Recent Fever Within 48 Hours No Sepsis New/Unexplained Change in Mental Status No Sepsis Action Taken by Nursing No Action Required Pulse Rate 126 H 118 H Respiratory Rate 20 19 Respiratory Effort / Characteristics Non-Labored Respiratory Depth Normal Respiratory Pattern Regular Blood Pressure 134/90 116/91 Blood Pressure Mean 104 99 Blood Pressure Position Sitting Pulse Oximetry 95 95 Oxygen Delivery Method Room Air Room Air 07/10/18 12:20 07/10/18 13:01 07/10/18 13:02 Temperature Temperature Source Sepsis Recent Fever Within 48 Hours Sepsis New/Unexplained Change in Mental Status Sepsis Action Taken by Nursing Pulse Rate 149 H 106 H 104 H Respiratory Rate 15 20 Respiratory Effort / Characteristics Respiratory Depth Respiratory Pattern Blood Pressure 116/91 119/90 Blood Pressure Mean 99 Blood Pressure Position Pulse Oximetry 97 95 Oxygen Delivery Method 07/10/18 13:30 07/10/18 13:31 07/10/18 14:00 Temperature Temperature Source Sepsis Recent Fever Within 48 Hours Sepsis New/Unexplained Change in Mental Status Sepsis Action Taken by Nursing Pulse Rate 105 H 101 H 113 H Respiratory Rate 15 16 13 Respiratory Effort / Characteristics Respiratory Depth Respiratory Pattern Blood Pressure 112/77 99/68 L Blood Pressure Mean 88 78 Blood Pressure Position Pulse Oximetry 96 97 Oxygen Delivery Method 07/10/18 14:01 07/10/18 14:02 07/10/18 14:30 Temperature Temperature Source Sepsis Recent Fever Within 48 Hours Sepsis New/Unexplained Change in Mental Status Sepsis Action Taken by Nursing Pulse Rate 105 H 102 H 115 H Respiratory Rate 19 22 14 Respiratory Effort / Characteristics Respiratory Depth Respiratory Pattern Blood Pressure 105/74 Blood Pressure Mean 84 Blood Pressure Position Pulse Oximetry Oxygen Delivery Method Home Medications Current Medication List: was personally reviewed by me Laboratory Data Attestation: I reviewed the patient's lab results. Result diagrams: 07/10/18 11:55 07/10/18 11:55 Lab Results 07/10/18 07/10/18 07/10/18 Range/Units 11:55 11:55 11:55 WBC 9.57 (4.8-10.8) K/uL RBC 4.29 (4.2-5.4) M/uL Hgb 13.2 (12.0-16.0) g/dL Hct 39.8 (37-47) % MCV 92.8 (80-100) fL MCH 30.8 (25-34) pg MCHC 33.2 (32-36) g/dL RDW Std Deviation 44.0 (36.4-46.3) fL RDW Coeff of Lillian 13.1 (11.5-14.5) % Plt Count 293 (130-400) K/uL MPV 10.2 (7.4-10.4) fL Immature Gran % (Auto) 0.1 % Neut % (Auto) 72.0 % Lymph % (Auto) 18.5 % [place] % (Auto) 7.8 % Eos % (Auto) 1.3 % Baso % (Auto) 0.3 % Immature Gran # (Auto) 0.01 (0.00-0.02) K/uL Neut # (Auto) 6.89 H (1.4-6.5) K/uL Lymph # (Auto) 1.77 (1.2-3.4) K/uL [place] # (Auto) 0.75 H (0.11-0.59) K/uL Eos # (Auto) 0.12 (0-0.5) K/uL Baso # (Auto) 0.03 (0-0.2) K/uL PT Cancelled INR Cancelled APTT (21.0-31.0) Seconds PTT Ratio Sodium 139 (136-145) mmol/L Potassium 3.9 (3.5-5.1) mmol/L Chloride 105 (98-107) mmol/L Carbon Dioxide 25 (21-32) mmol/L Anion Gap 9.0 (3-11) BUN 14 (7-18) mg/dl Creatinine 0.72 (0.6-1.2) mg/dl Est Cr Clr Drug Dosing 83.5 ml/min Est GFR ( Amer) 104.0 Est GFR (Non-Af Amer) 89.8 BUN/Creatinine Ratio 19.8 (10-20) Glucose 139 H (70-99) mg/dl Calcium 8.9 (8.5-10.1) mg/dl Magnesium 2.0 (1.8-2.4) mg/dl Total Bilirubin 0.2 (0.2-1) mg/dl AST 29 (15-37) U/L ALT 24 (12-78) U/L Alkaline Phosphatase 123 H (45-117) U/L Troponin I < 0.015 (0-0.045) ng/ml Total Protein 8.2 (6.4-8.2) gm/dl Albumin 3.8 (3.4-5.0) gm/dl Globulin 4.4 H (2.5-4.0) gm/dl Albumin/Globulin Ratio 0.9 (0.9-2) TSH 1.180 (0.300-4.500) uIu/ml Specimen Hemolysis 07/10/18 Range/Units 13:09 WBC (4.8-10.8) K/uL RBC (4.2-5.4) M/uL Hgb (12.0-16.0) g/dL Hct (37-47) % MCV (80-100) fL MCH (25-34) pg MCHC (32-36) g/dL RDW Std Deviation (36.4-46.3) fL RDW Coeff of Lillian (11.5-14.5) % Plt Count (130-400) K/uL MPV (7.4-10.4) fL Immature Gran % (Auto) % Neut % (Auto) % Lymph % (Auto) % [place] % (Auto) % Eos % (Auto) % Baso % (Auto) % Immature Gran # (Auto) (0.00-0.02) K/uL Neut # (Auto) (1.4-6.5) K/uL Lymph # (Auto) (1.2-3.4) K/uL [place] # (Auto) (0.11-0.59) K/uL Eos # (Auto) (0-0.5) K/uL Baso # (Auto) (0-0.2) K/uL PT 10.5 INR 1.0 APTT 26.8 (21.0-31.0) Seconds PTT Ratio 1.0 Sodium (136-145) mmol/L Potassium (3.5-5.1) mmol/L Chloride (98-107) mmol/L Carbon Dioxide (21-32) mmol/L Anion Gap (3-11) BUN (7-18) mg/dl Creatinine (0.6-1.2) mg/dl Est Cr Clr Drug Dosing ml/min Est GFR ( Amer) Est GFR (Non-Af Amer) BUN/Creatinine Ratio (10-20) Glucose (70-99) mg/dl Calcium (8.5-10.1) mg/dl Magnesium (1.8-2.4) mg/dl Total Bilirubin (0.2-1) mg/dl AST (15-37) U/L ALT (12-78) U/L Alkaline Phosphatase (45-117) U/L Troponin I (0-0.045) ng/ml Total Protein (6.4-8.2) gm/dl Albumin (3.4-5.0) gm/dl Globulin (2.5-4.0) gm/dl Albumin/Globulin Ratio (0.9-2) TSH (0.300-4.500) uIu/ml Specimen Hemolysis Administered Medications Discontinued Medications Metoprolol Tartrate (Lopressor) 2.5 mg IV NOW STA Stop: 07/10/18 12:12 Last Admin: 07/10/18 12:20 Dose: 2.5 mg Metoprolol Tartrate (Lopressor) 2.5 mg IV NOW STA Stop: 07/10/18 13:00 Last Admin: 07/10/18 13:06 Dose: 2.5 mg Imaging Data Radiologist's Impression: Radiology results as stated below per my review and the radiologist's interpretation: XR chest 1V portable HISTORY: dysrhythmia COMPARISON: Chest 03/22/2016. FINDINGS: No pneumothorax. No pleural effusions. The right basilar linear densities favor subsegmental atelectasis or scarring. The left lung is clear. The heart remains mildly enlarged. No evidence for pulmonary edema. IMPRESSION: 1. Stable mild cardiomegaly. 2. Right basilar linear densities favor subsegmental atelectasis. Electronically signed by: Speedy Esteves M.D. 07/10/2018 12:33 PM LEFT LOWER EXTREMITY VENOUS DOPPLER HISTORY: Left leg SWELLING, ?DVT COMPARISON STUDY: None. FINDINGS: There is normal compressibility, flow, and augmentation within the left lower extremity deep venous system. IMPRESSION: No DVT within the left lower extremity. Electronically signed by: Speedy Esteves M.D. 07/10/2018 12:47 PM ECG Data Attestation: I personally reviewed and interpreted this ECG as follows: Indication: tachycardia Rate (beats per minute): 149 Rhythm: other (atrial flutter ) Findings: no PAC, no PVC, no ST depression and no ST elevation Additional Comments: Repeat ECG: Atrial flutter at [address] elevation No ST depression No PAC No PVC Blood Pressure Blood Pressure Findings: Normal blood pressure Blood Pressure Disposition: did not require urgent referral Discharge Plan Visit Data Chief Complaint: Tachycardia Stated Complaint: TACHCARDIA- CARDIAC HX ED Provider: Av Grimes Discharge Problem: Atrial flutter with rapid ventricular response Patient Disposition: Being Evaluated by Hospitalist Forms Stand Alone Forms: [facility] Prescriptions Prescriptions: No Action multivitamin [Multiple Vitamins] Tablet 1 tab PO DAILY RF: 0 calcium carbonate [Calcium 600] 600 mg calcium (1,500 mg) Tablet 1 dose PO DAILY RF: 0 quinapril 5 mg Tablet 5 mg PO QAM RF: 0 pravastatin 20 mg Tablet 20 mg PO HS RF: 0 furosemide 20 mg Tablet 20 mg PO QAM PRN (Reason: Edema) RF: 0 metoprolol succinate 25 mg Tablet Extended Release 24 Hr 25 mg PO HS RF: 0 metoprolol succinate 25 mg Tablet Extended Release 24 Hr 25 mg PO QAM RF: 0 apixaban [Eliquis] 5 mg Tablet 5 mg PO BID RF: 0 potassium chloride 20 mEq Tablet Extended Release 20 meq PO QAM RF: 0 coenzyme Q10 [CoQ-10] 100 mg Capsule 200 mg PO DAILY RF: 0 Referrals Referrals: Hira Morse [Primary Care Provider] - The scribe's documentation has been prepared under my direction and personally reviewed by me in its entirety. I confirm that the note above accurately reflects all work, treatment, procedures, and medical decision making performed by me.
[2018-07-10] MEDS ORDERED: METOPROLOL TARTRATE 1 MG/ML VIAL IV PRN (16:17)
[2018-07-10] MEDS ORDERED: ACETAMINOPHEN 325 MG TAB PO PRN (16:17)
[2018-07-10] MEDS: APIXABAN 5 MG TABLET PO SCH (19:54)
[2018-07-10] MEDS: METOPROLOL SUCC 25MG EXT REL TAB PO SCH (19:54)
[2018-07-10] MEDS ORDERED: PRAVASTATIN SOD 20 MG TAB PO SCH (21:00)
--- NOTE | 2018-07-11 01:30 | Anesthesiology Consultation ---
Date of Service July 11, 2018 Assessment & Plan (1) Encounter for pre-operative examination: Chart Review Chart Review: Acceptable Risk for Surgery and Patient NOT seen in Pre Admission Testing Consults Requested none History Surgery Cardioversion for aflutter Height/Weight Height: 5 ft 3 in Weight: 83.7 kg Allergies Allergy/AdvReac Type Severity Reaction Status Date / Time Penicillins Allergy Severe ANAPHYLAXIS Verified 07/10/18 12:39 clopidogrel Allergy Intermediate rash Verified 07/10/18 12:39 rifampin Allergy Intermediate rash Verified 07/10/18 12:39 clarithromycin AdvReac Intermediate nausea Verified 07/10/18 12:39 lisinopril AdvReac Intermediate cough Verified 07/10/18 12:39 hydrochlorothiazide AdvReac Mild headache Verified 07/10/18 12:39 Medications Home Medications Medication Instructions Recorded Confirmed Last Taken apixaban [Eliquis] 5 mg PO BID 05/13/18 07/10/18 06/04/18 18:00 calcium carbonate [Calcium 600] 1 dose PO DAILY 05/13/18 07/10/18 06/07/18 08:00 coenzyme Q10 [CoQ-10] 200 mg PO DAILY 05/13/18 07/10/18 05/21/18 furosemide 20 mg PO QAM PRN 05/13/18 07/10/18 06/07/18 08:00 metoprolol succinate 25 mg PO HS 05/13/18 07/10/18 06/07/18 20:00 metoprolol succinate 25 mg PO QAM 05/13/18 07/10/18 06/08/18 05:00 multivitamin [Multiple Vitamins] 1 tab PO DAILY 05/13/18 07/10/18 06/07/18 08:00 potassium chloride 20 meq PO QAM 05/13/18 07/10/18 06/07/18 21:00 pravastatin 20 mg PO HS 05/13/18 07/10/18 06/07/18 21:00 quinapril 5 mg PO QAM 05/13/18 07/10/18 06/08/18 05:00 Active Medications Generic Name Dose Route Start Last Admin Trade Name Freq PRN Reason Stop Dose Admin Apixaban 5 mg 07/10/18 21:00 07/10/18 19:54 Eliquis PO 08/09/18 20:59 5 mg BID ROBEL Administration Metoprolol Succinate 25 mg 07/10/18 21:00 07/10/18 19:54 Toprol Xl PO 08/09/18 20:59 25 mg BID ROBEL Administration Pravastatin Sodium 20 mg 07/10/18 21:00 07/10/18 19:54 Pravachol PO 08/09/18 20:59 20 mg HS ROBEL Administration Past Medical History Medical History Atrial flutter WITH POSSIBLE A-FIB. S/P ABLATION 2015. DURING PROCEDURE HAD ACUTE CHF, AND HAD TO BE CARDIOVERTED. STILL ON ELIQUIS. Arthritis DVT prophylaxis History of TIA (transient ischemic attack) 5 YRS AGO, WAS ON PLAVIX (HAD ALLERGIC RXN), THEN AGRENOX FOR TX. NOW ON ELIQUIS. NO RESIDUAL EFFECTS History of heart failure FOLLOWING CARDIAC ABLATION/TOO MUCH FLUID DURING ABLATION PROCEDURE History of skin cancer History of tachycardia CARDIOVERSION 2015 Hyperlipidemia Hypertension Mitral valve disease RHEUMATIC. S/P REPLACEMENT 2009 Osteopenia FOSOMAX TO START AFTER SURGERY Thyroid nodule Past Family History Family History Mother Atrial fibrillation CVA (cerebral vascular accident) Other HTN (hypertension) Heart disease Past Surgical History Surgical History History of left knee replacement History of cardiac catheterization 2009/PRIOR TO VALVE REPLACEMENT/RICHIE ARRIAZA History of cardiac radiofrequency ablation History of colonoscopy History of laparoscopic cholecystectomy History of mitral valve replacement 2009-[facility]/DR PALMER Social History Smoking Status: Never smoker Hx Alcohol Use: No Hx Substance Use: No Physical Exam Vital Signs Last Vital Signs Temp 36.5 C 07/10/18 23:45 Pulse 79 07/10/18 23:45 Resp 18 07/10/18 23:45 BP 93/55 L 07/10/18 23:45 Pulse Ox 94 07/10/18 23:45 Testing Electrocardiogram Date: 07/10/18 Findings: + NSR @ (98) Other Testing Echocardiogram Date: 06/03/18 EF: 60% Normal LV size and systolic function with no regional wall motion abnormalities. Mild to moderate concentric LVH. Top normal RV size with mildly reduced RV systolic function. Bioprosthetic mitral valve replacement with increased gradients (previous MG 5.4 and now 7.9 mmHg). No significant MR. Normal PA pressures. Since prior study of 03/17/2016 the LV function has normalized. EMG across the bio MVR is slightly higher. Laboratory Results 07/10/18 11:55 07/10/18 11:55 PT 10.5 Seconds (9.0-12.0) 07/10/18 13:09 INR 1.0 (0.9-1.1) 07/10/18 13:09 APTT 26.8 Seconds (21.0-31.0) 07/10/18 13:09
[2018-07-11] MEDS ORDERED: ePHEDrine sulfate 50 MG/ML AMP IV PRN (07:23)
[2018-07-11] MEDS ORDERED: ATROPINE SULFATE 0.1 MG/ML 10ML SYR IV PRN (07:23)
--- NOTE | 2018-07-11 07:30 | Cardiology Consultation ---
Date of Consultation July 11, 2018 Assessment & Plan (1) Atrial flutter with rapid ventricular response: She developed symptoms of atrial arrhythmias the day of admission, the rate was quite erratic but fast at times (up to 140 150 bpm). She did not has severe symptoms such as chest discomfort, lightheadedness or dizziness but felt uncomfortable with it. She has maintained her Eliquis without missing doses recently. At this point I would recommend converting her back to normal rhythm , I discussed the indications, procedure, risks and alternatives with her and she understands and agrees. She has had cardioversion before. (2) Mitral valve disease: She has had a mitral valve replacement, to my knowledge the valve has been working well and she does not have symptoms to suggest malfunction. Her exam is unremarkable regarding the valve. I am not seeing her recent echocardiogram, I suspect she had one as an outpatient and I do not think we need to repeat that. History of Present Illness Reason for Consultation: Atrial flutter Attending Physician: Alfonzo Hyman MD History of Present Illness This is a very pleasant 62-year-old woman who has a history of hypertension, hypercholesterolemia mitral valve replacement in 2009 in [facility] and a history of some type of atrial arrhythmia for which she had ablation at [facility] in February 2016. She describes a left-sided atrial flutter, I do not have records regarding that procedure. To my knowledge she does not have coronary artery and had a catheterization 2009 before her valve replacement. She recently had left knee surgery (discharged June 09, 2018) and describes difficulty with an elevated heart rate at times since but for the most part has not been in atrial fibrillation to her knowledge until noting on the day of admission that her heart rate was rapid. 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 I had her come into the emergency room where she was noted to be in atrial flutter. At rest her heart rate was about 90 bpm , however with minimal activity increased to 2 1 AV conduction with a heart rate of 140 bpm. Allergies Allergy/AdvReac Type Severity Reaction Status Date / Time Penicillins Allergy Severe ANAPHYLAXIS Verified 07/10/18 12:39 clopidogrel Allergy Intermediate rash Verified 07/10/18 12:39 rifampin Allergy Intermediate rash Verified 07/10/18 12:39 clarithromycin AdvReac Intermediate nausea Verified 07/10/18 12:39 lisinopril AdvReac Intermediate cough Verified 07/10/18 12:39 hydrochlorothiazide AdvReac Mild headache Verified 07/10/18 12:39 Home Medications Home Medications Medication Instructions Recorded Confirmed Type apixaban [Eliquis] 5 mg PO BID 05/13/18 07/10/18 History calcium carbonate [Calcium 600] 1 dose PO DAILY 05/13/18 07/10/18 History coenzyme Q10 [CoQ-10] 200 mg PO DAILY 05/13/18 07/10/18 History furosemide 20 mg PO QAM PRN 05/13/18 07/10/18 History metoprolol succinate 25 mg PO HS 05/13/18 07/10/18 History metoprolol succinate 25 mg PO QAM 05/13/18 07/10/18 History multivitamin [Multiple Vitamins] 1 tab PO DAILY 05/13/18 07/10/18 History potassium chloride 20 meq PO QAM 05/13/18 07/10/18 History pravastatin 20 mg PO HS 05/13/18 07/10/18 History quinapril 5 mg PO QAM 05/13/18 07/10/18 History Patient History Medical History Atrial flutter WITH POSSIBLE A-FIB. S/P ABLATION 2015. DURING PROCEDURE HAD ACUTE CHF, AND HAD TO BE CARDIOVERTED. STILL ON ELIQUIS. Arthritis DVT prophylaxis History of TIA (transient ischemic attack) 5 YRS AGO, WAS ON PLAVIX (HAD ALLERGIC RXN), THEN AGRENOX FOR TX. NOW ON ELIQUIS. NO RESIDUAL EFFECTS History of heart failure FOLLOWING CARDIAC ABLATION/TOO MUCH FLUID DURING ABLATION PROCEDURE History of skin cancer History of tachycardia CARDIOVERSION 2015 Hyperlipidemia Hypertension Mitral valve disease RHEUMATIC. S/P REPLACEMENT 2009 Osteopenia FOSOMAX TO START AFTER SURGERY Thyroid nodule Surgical History History of left knee replacement History of cardiac catheterization 2009/PRIOR TO VALVE REPLACEMENT/[facility] History of cardiac radiofrequency ablation History of colonoscopy History of laparoscopic cholecystectomy History of mitral valve replacement 2009-[facility]/DR PALMER Family History Mother Atrial fibrillation CVA (cerebral vascular accident) Other HTN (hypertension) Heart disease Social History marital status: Current Living Situation: Spouse Other Information That Helps Us Care for You: No Feels Safe at Home: Yes Safety Concerns: Feels Safe At This Time Smoking Status: Never smoker Hx Alcohol Use: No Hx Substance Use: No Beliefs That Will Affect Care: None Preferred Language: Maori Communication Ability: Effective Care Associate Required: No Review of Systems Negative for lightheadedness, dizziness, presyncope or syncope. Notable for palpitations and increased heart rate as noted above. No exertional symptoms, no dyspnea on exertion or exertional chest pain. No orthopnea or PND or peripheral edema. No GI complaints, no bleeding. No neurologic complaints such as TIA or stroke symptoms. Other systems negative. Physical Exam 2 Vital Signs (Past 24 Hours): Last Vital Signs Temp 36.6 C 07/11/18 03:47 Pulse 78 07/11/18 03:47 Resp 16 07/11/18 03:47 BP 100/63 07/11/18 03:47 Pulse Ox 96 07/11/18 03:47 Physical Exam: Constitutional: Alert, cooperative and in no distress. HEENT: Unremarkable Neck: No jugular venous distention, carotid pulses are irregular but otherwise normal and equal bilaterally without bruits. Pulmonary: Clear to auscultation bilaterally. Cardiac: Irregular rhythm with good prosthetic valve sounds, no gallop or rub. Abdomen: Soft, nontender with normal bowel sounds. Extremities: No edema. Distal pulses intact. Neurologic: No focal findings. Gait is steady. Skin: No rash, ecchymoses or petechiae. Results & Data Diagnostic Findings Her electrocardiogram on arrival demonstrates atrial flutter with 3-1 AV conduction. Telemetry: Variable heart rate consistent with atrial flutter 2-1 conduction at times, more controlled heart rates at other times.
--- NOTE | 2018-07-11 07:37 | Cardioversion ---
Date of Service July 11, 2018 Electrical Cardioversion Rpt Electrical Cardioversion Report The patient was brought to the laboratory being NPO after midnight and was identified in the laboratory, connected to the recording apparatus including electrocardiographic monitoring, noninvasive blood pressure monitoring and pulse oximetry. Anteroposterior patch electrodes were placed. The patient was anesthetized by the anesthesia department. Once adequate anesthesia was obtained a synchronized biphasic shock was delivered using 200 J with conversion to a sinus rhythm. The patient awoke from the anesthetic without sequela, will be observed briefly and then returned to her room.
--- NOTE | 2018-07-11 07:38 | Anesthesiology Progress Note ---
Date of Service July 11, 2018 Anesthesia Post Procedure Vital Signs Vital Signs: Temp Pulse Pulse Resp BP BP Pulse Ox 07/11/18 03:47 36.6 C 78 16 100/63 96 07/10/18 23:45 36.5 C 79 18 93/55 L 94 07/10/18 19:25 36.4 C L 85 16 112/76 95 07/10/18 17:18 36.7 C 107 H 16 112/75 96 07/10/18 16:17 36.7 C 107 H 16 118/75 96 07/10/18 14:30 115 H 14 07/10/18 14:02 102 H 22 07/10/18 14:01 105 H 19 105/74 07/10/18 14:00 113 H 13 99/68 L 07/10/18 13:31 101 H 16 112/77 97 07/10/18 13:30 105 H 15 96 07/10/18 13:02 104 H 20 95 07/10/18 13:01 106 H 15 119/90 97 07/10/18 12:20 149 H 116/91 07/10/18 12:02 95 07/10/18 12:01 118 H 19 116/91 07/10/18 11:49 36.3 C L 126 H 20 134/90 95 Notes Mental Status: alert / awake / arousable Patient Amnestic to Procedure: Yes Nausea / Vomiting: adequately controlled Pain: adequately controlled Airway Patency, RR, SpO2: stable & adequate BP & HR: stable & adequate Hydration State: stable & adequate Anesthetic Complications: no major complications apparent and Pt Satisfied with anesthetic care
[2018-07-11 08:12] LABS: Mean Corpuscular Hgb Conc 32.4 g/dL (32-36); Mean Platelet Volume 9.8 fL (7.4-10.4); Platelet Count 234 K/uL (130-400); RDW Coefficient of Variation 13.1 % (11.5-14.5); RDW Standard Deviation 44.7 fL (36.4-46.3); Red Blood Count 3.98 M/uL (4.2-5.4); White Blood Count 5.64 K/uL (4.8-10.8)
[2018-07-11 08:40] LABS: BUN Creatinine Ratio 18.1 (10-20); Calcium 8.2 mg/dl (8.5-10.1); Creatinine Clr Calc Pharmacy 89.2 ml/min; Est GFR (African American) 109.2; Est GFR (Non-African American) 94.2
[2018-07-11] MEDS: METOPROLOL SUCC 25MG EXT REL TAB PO SCH (08:47)
[2018-07-11] MEDS: APIXABAN 5 MG TABLET PO SCH (08:47)
[2018-07-11] MEDS ORDERED: ENALAPRIL MALEATE 5 MG TAB PO SCH (09:00)
[2018-07-11] MEDS ORDERED: QUINAPRIL PO SCH (09:00)
--- NOTE | 2018-07-19 23:44 | Discharge Summary ---
Date of Service July 11, 2018 Admission HPI Per Admitting Provider 62yo F w/ hx of aflutter s/p ablation and left total knee replacement in 2018 who presents with tachycardia and aflutter. Per patient, she was in her normal state of health and doing her knee exercises this morning when she noted her heart racing. She took her pulse and found it to be 150. It dropped to 68 for a minute, but then went up to the 140 range and stayed there. 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 Chowdhury responded and recommended she be seen. In the ED, she got 5mg metoprolol and improved the HR to the 90s, but then it went back up to the 140s when she walked around, and she asked to stay in the hospital. At present, she feels quite well, and denies any shortness of breath, orthopnea , any chest pain or palpitations, any nausea or vomiting, or MSK pain. She notes that she used the Lasix yesterday, but since her surgery, she reports she has been told to only take the Lasix PRN due to no LE edema and lower BPs. Principal Diagnosis A. fib with RVR Discharge Exam Constitutional: WD/WN, vitals as above + obese and cooperative Eyes: EOM intact bilaterally; no conjunctival abnormality ENMT: external ear and nose normal, oropharynx normal Neck: trachea midline, no thyromegaly normal visual inspection Respiratory: normal respiratory effort, lungs clear to auscultation no respiratory distress Cardiovascular: Rate/Rhythm: + tachycardic; + abnormal rhythm Heart Sounds : normal S1 and normal S2 Gastrointestinal (Abdomen): Inspection/Auscultation: abdomen normal to inspection; abdomen not distended Musculoskeletal: no cyanosis or clubbing, extremities motor strength 5/5 Skin: no rashes, warm and dry Neurologic: moves all extremities and awake Psychiatric: Orientation: alert, oriented to person and cooperative Discharge Data Allergies Allergy/AdvReac Type Severity Reaction Status Date / Time Penicillins Allergy Severe ANAPHYLAXIS Verified 07/10/18 12:39 clopidogrel Allergy Intermediate rash Verified 07/10/18 12:39 rifampin Allergy Intermediate rash Verified 07/10/18 12:39 clarithromycin AdvReac Intermediate nausea Verified 07/10/18 12:39 lisinopril AdvReac Intermediate cough Verified 07/10/18 12:39 hydrochlorothiazide AdvReac Mild headache Verified 07/10/18 12:39 Consultations 07/10/18 14:01 ED Decision to Admit Stat 07/10/18 16:17 Consult Cardiology Routine 07/10/18 19:17 Consult Anesthesiology Routine Procedures Performed Operation Date: 07/11/18 07:30 Actual Procedures p Cardioversion - Radhames Chowdhury MD p Cardioversion - Radhames Chowdhury MD Ordered Studies 07/10/18 12:11 US venous doppler LE LT Stat Hospital Course (1) Atrial flutter: HR has been faster since her left TKA in 05/2018. Unclear cause of her acute tachycardia. LLE Doppler was negative on 07/10, and she is on anticoagulation anyhow for the afib/aflutter, so clot elsewhere is unlikely. TSH was 1.2 on admission. No signs of volume overload for worsening CHF being the precipitant. Of note, patient only takes her Lasix PRN now. She did last night, but otherwise, has not had to frequently. - Continue home meds - Metoprolol 2.5mg IV Q2h PRN for HR > 110 - Cardiology consult - Telemetry - Monitor BP Patient improved after cardioversion DC on metoprolol succinate 25 mg po bid. (2) Hypertension: Per patient, has been lower than usual after surgery (thought to be due to volume loss). In ED, it was 105/75. - Continue home meds BP better controlled (3) History of TIA (transient ischemic attack): Per notes, it was >5 years ago. Was on Plavix for awhile, but now on Eliquis for the afib. No residual deficits. - Monitor (4) Mitral valve disease: S/p mitral valve replacement. - No acute medical concern (5) DVT prophylaxis: On anticoagulation for afib Total Time Total Time Spent Total Time Spent (In Minutes): 31 Total Time Includes: Examination of the Patient, Discharge Planning and Medication Reconciliation Discharge Plan Discharge Items Patient Disposition: Home - Self-Care Reason For Visit: AFLUTTER WITH RVR Discharge Diagnosis: Atrial Flutter with RVR Discharge Goals: Decrease discomfort Activity: Resume your previous activity Non-emergency contact: Primary Care Provider Call non-emergency contact if: you have any medication questions Follow-up/Referrals: Vamsi Poole, [Family Provider] - (Please, follow up with Dr. Poole. His nurse will call you with the appointment details. *If you have any questions, call the office at [phone].) Hira Morse [Primary Care Provider] - 07/14/18 12:50 pm (Please, follow up at Dr. Morse's office on July 14 at 12:50 pm. *The office phone number is [phone].) Diet: Regular Addtl Provider Instructions: You were admitted to the hospital due to a rapid heart rate. You were seen by Cardiology during the hospital stay. You had a cardioversion done which put you back to your regular rate. Ok to discharge. Recommend followup with PCP and cardiology in 1-2 weeks. Ok to resume your medicine. If your heart rate becomes elevated again, please contact your PCP or come to the ER. Prescriptions: Continue multivitamin [Multiple Vitamins] Tablet 1 tab PO DAILY RF: 0 calcium carbonate [Calcium 600] 600 mg calcium (1,500 mg) Tablet 1 dose PO DAILY RF: 0 quinapril 5 mg Tablet 5 mg PO QAM RF: 0 pravastatin 20 mg Tablet 20 mg PO HS RF: 0 furosemide 20 mg Tablet 20 mg PO QAM PRN (Reason: Edema) RF: 0 metoprolol succinate 25 mg Tablet Extended Release 24 Hr 25 mg PO HS RF: 0 metoprolol succinate 25 mg Tablet Extended Release 24 Hr 25 mg PO QAM RF: 0 apixaban [Eliquis] 5 mg Tablet 5 mg PO BID RF: 0 potassium chloride 20 mEq Tablet Extended Release 20 meq PO QAM RF: 0 coenzyme Q10 [CoQ-10] 100 mg Capsule 200 mg PO DAILY RF: 0 Stand-Alone Forms: [facility]/Other Patient Handouts: Cardioversion Dc Discharge Orders: Discharge Order (Routine); Ordered 07/11/18 Ordered By: Jacobo Smart Admission Data Admit Date/Time: 07/10/18 14:42 Attending Provider: Jacobo Smart Admit Provider: Alfonzo Hyman Primary Care Provider: Hira Morse Other Providers: Radhames Chowdhury Service: Telemetry Other Interventions: Discharge Summary Assessment (RN) Last Done: 07/11/18 10:19 DC Date/Time DO NOT enter until pt leaves facility: 07/11/18 10:45
== END 2018-07-11 10:45 | disposition home or self-care (01) | DRG 310 ==
LOC: ED 11:45 → 2S 14:42 → SUATTDRO 14:42 → 2S 16:12
DX: Z79.899 Other long term (current) drug therapy; E78.00 Pure hypercholesterolemia, unspecified; I10 Essential (primary) hypertension; Z79.01 Long term (current) use of anticoagulants; I48.92 Unspecified atrial flutter; Z86.73 Personal history of transient ischemic attack (TIA), and cerebral infarction without residual deficits